=== PATIENT | female | born 1950 | race Caucasian/White ===

== ENCOUNTER 2022-08-12 12:38 | Inpatient (IN) ==
[~2022-08-12 12:38] MED LIST: IPRATROPIUM/ALBUTEROL 3 ML AMPUL.NEB NEB PRN; SCOPOLAMINE 1 PATCH PATCH TOPICAL PRN
--- OUTSIDE RECORDS SUMMARY | 2022-08-12 12:40 | External Medical Summary | Encounter Summary ---
:1950 Author Care Team Providers Name Role Phone Nicholas [facility] Primary Care Provider [phone] Jonnathan Kaur MD [employer] [phone] Reason for Visit right knee pain Assessment and Plan 1. Pain of right knee joint Mary Jane is in quite a bit of pain when sh e ambulates and has swelling of her right knee. Will proceed wtih MRI and referral to orthopedics, per her request for a cortisone injection. Recommend trial of meloxicam. Risks, benefits and side effects of medication were discussed. Do not tyshawn e additional NSAIDs with the meloxicam, she will hold the baby aspirin. Recommend ic e and/or heat. Will call with the MRI results and any additional recommendations. Denise ent in agreement with plan and all questions answered. meloxicam 7.5 mg tablet MRI, knee, w/o contrast orthopedic surgeon referral - Pt requ ests Dr. Morley. Right knee pain and swelling. MRI ordered. Requesting cortis one injection. Discussion Note 30 total time spent today by this ainsley payne for this patient, [id number] and non [id number] services combined. Patient educational handouts: No information available. Plan of Care Reminders Provider Appointments Office Visit 30 on or around Domitila Caldwell, 09/25/2022 [facility] None recorded. Referral Orthopedic Surgeon 08/01/2022 Julisa Or teo Referral Procedures None recorded. Surgeries None recorded. Imaging MRI, Knee, W/o Contrast 08/01/2022 [facility] Medications Name Start Date aspirin 81mg daily atorvastatin 40 mg tablet TAKE 1 TABLET BY MOUTH ONCE DAILY B-12 Compliance benzonatate 100 mg capsule fenofibrate 160 mg tablet Take 1 tablet by mouth once daily hydrochlorothiazide 12.5 mg capsule TAKE 1 CAPSULE BY MOUTH ONCE DAILY hydromorphone 2 mg tablet Take 1 tablet every day by oral route as needed. hydroxyzine HCl 25 mg tablet TAKE 1 TABLET BY MOUTH TWICE DAILY iron 325mg Iron (ferrous sulfate) 325 mg (65 mg iron) tablet Take 1 tablet every day by oral route. levothyroxine 88 mcg tablet Take 1 tablet every day by oral route. meloxicam 7.5 mg tablet Take 1 tablet every day by oral route with meals. metoprolol succinate ER 50 mg tablet,extended release 24 hr Take 1 tablet by mouth once daily nitroglycerin 0.4 mg sublingual tablet DISSOLVE ONE TABLET UNDER THE TONGUE EV JULIANA 5 MINUTES NEEDED FOR CHEST PAIN. DO NOT EXCEED A TOTAL OF 3 DOSES IN 15 MINUTES omeprazole 40 mg capsule,delayed release TAKE 1 CAPSULE BY MOUTH ONCE DAILY paroxetine 20 mg tablet TAKE 1 TABLET BY MOUTH ONCE DAILY Stool Softener Vitamin B12 Vitamin D3 600mg capule TID Medications Administered None recorded. Vitals Height Weight BMI Blood Pressure 5 ft 2.25 in 146.6 lbs 26.6 kg/m2 168/84 mm[Hg] Results Lab Results None recorded. 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 Colon polyps) 11/03/2005 Cholecystectomy Information not avai lable Foot/toes Surgery Procedure Information not available Notes: 2019 Left sesmoidectomy and scr ew removal. Dr. Alston Back Surgery Information not avai lable Notes: x2 Caesarean Section Information not avai lable Caesarean Section Information not avai lable 08/01/2022 MRI, Knee, W/o Contrast [facility]iology [address] [place] [id number] ([address]) Vaccine List Vaccine Type influenza, injectable, quadrivalent, pre servative free 08/05/2018 08/13/2019 07/20/20200.5 mL influenza, recombinant, quadrIvalent,inj ectable, preservative free 10.5 mL pneumococcal conjugate PCV 13 11/23/2014 pneumococcal polysaccharide PPV23 10/15/2017 Td(adult) unspecified formulation 07/04/2012 Tdap 09/22/20180.5 mL Notes: pt notes got Flu shot at Dr. Wilmar jennings office, COVID VACCINE COMPLETED Social History Tobacco Smoking Status Former Smoker (2 packs per Notes: s topped in 2002) Do you have difficulty walking N or climbing stairs? What type of diet are you REGULAR following? During the past 4 weeks, what Moderate was the hardest physical activity you could do for at least 2 minutes? Are you able to care for Y yourself? Are you currently employed? N How much tobacco do you chew? none What is your level of alcohol None consumption? Education 8 Number of sexual partners 1 Do you exercise for 20 minutes No - I usually do not do or more, 3 or more days per this much week? Seat belts used routinely Y How often do you need to have Never someone help you when you read instructions, pamphlets, or other written material from your doctor or pharmacy? In the past year, how often have Never you used prescription drugs for non-medical reasons? How many children do you have? 4 Are you blind or do you have N difficulty seeing? Do you have smoke and carbon Y monoxide detectors in your home? Partner status What was the date of your most 08/01/2022 recent tobacco screening? Do you have an advanced N directive? General stress level Medium Vaping or electronic cigarettes? N How many years have you smoked 40 tobacco? Live alone or with others? with others Guns present in home? Yes - Guns are secured Are you sexually active? N Do you have difficulty N concentrating, remembering or making decisions? Hard of hearing or deaf in one N or both ears? What is your level of caffeine Moderate consumption? Are you having difficulties No driving your car? How often in the past year have Never you used illegal substances? Marijuana / cannabis use? N Family History Relation Problem Onset Age of Age Notes Brother Neoplasm of lung (No N/A Information) Brother Hypertensive disorder (No N/A (No No fabián) Information) Brother Neoplasm of pancreas (No N/A d Information) Sister Neoplasm of uterus (No N/A alive Information) Sister Hypertensive disorder (No N/A (No No fabián) Information) Unspecified Neoplasm of lung (No N/A niece-decea sed Relation Information) Father Alcohol abuse (No N/A (No Notes) Information) Father Heart disease (No N/A (No Notes) Information) Father Hypercholesterolemia (No N/A (No Not es) Information) Father Hypertensive disorder (No N/A (No No fabián) Information) Father Cerebrovascular accident (No N/A (No Notes) Information) Mother Arthritis (No N/A (No Notes) Information) Mother Malignant tumor of colon (No N/A (No Notes) Information) Mother Cerebrovascular accident (No N/A (No Notes) Information) Mother Osteoporosis (No N/A (No Notes) Information) Functional Status No Impairment. Past Encounters 08/01/2022 Pain of Right Knee Joint Domitila Doreen Caldwell, [facility]: [address] [place] [id number], Ph. History of Present Illness Note: <div>Patient presents to the clinic with a chief complaint of right knee pain. She states [facility] for this complaint and was told she had arthritis and an effusion. She had fluid removed and an intra-articular morphine injection. She states they tested the fluid for gout and it was negative. The injection did not help with the pain or swelling. She reports this all started about a week ago and she is having trouble ambulating due to the pain. She has a history of right knee pain in the past which required cortisone injections (5 years ago or so). She states bending her knee is painful and it is difficult to get up once she is sitting down. Rest and heat have improved the pain. She was prescribed naproxen but she didn't feel like it was helpful. Of note, shewent to urgent care prior to this for bilateral ankle swelling and was diagnosed with thrombophlebitis. She reports this is now mostly resolved. Denies history of DVT or blood clots. Denies history of trauma or injury.</div><div>
</div> Review of Systems Comprehensive Adult Problem ROS Reported By: Patient Constitutional: Constitutional: no fever Musculoskeletal: Musculoskeletal: no previous injuries, no trauma, joint swelling Physical Exam Musculoskeletal and Joint Ex am Reported By: Patient Musculoskeletal System: Right Knee: no crepitus, goo d ROM, no warmth, no erythema, no deformity, swelling, tendern ess, pain on palpation. Left Knee: no crepitus, good ROM, no tenderness. Right Ankle: ROM good, no tenderness, no warm th, no erythema, no pain on palpation, swelling; Varicos e veins noted to RLE. Pedal pulses normal. Left Ankle: R OM good, no tenderness, no warmth, no erythema, no pain on palpation, swelling; Varicose veins noted to LLE. Pedal pu lses normal
--- OUTSIDE RECORDS SUMMARY | 2022-08-12 12:40 | External Medical Summary ---
:1950 Author Care Team Providers Name Role Phone MACIEL KNOX MD [employer] [phone] [facility] Primary Care Provider [phone] Allergies Code Code System Name Reaction Severity Status Onset DARVOCET-N Active 5489 RxNorm Hydrocodone Hives Active 7804 RxNorm Oxycodone Hives Active Medications Name Status Start Date Stop Date acetic acid 2 % ear solution Completed Advair HFA 115 mcg-21 mcg/actuation aerosol inhaler Completed 01/07/2018 Inhale 2 puffs twice a day by inhalation route for 30 days. alendronate 70 mg tablet Completed 020 amoxicillin 500 mg capsule Completed 01/31 Take 1 capsule every 12 hours by oral route for 10 days. amoxicillin 875 mg-potassium clavulanate 125 mg tablet Completed 01/05/2018 Take 1 tablet every 12 hours by oral route for 7 days. aspirin Active Not available 81mg daily atorvastatin 40 mg tablet Active Not av ailable azithromycin 250 mg tablet Completed 10/16 B-12 Compliance Active Not available benzonatate 100 mg capsule Active Not a vailable bupivacaine (PF) 0.5 % (5 mg/mL) injection solution Completed 12/25/2020 Take 6 mL by injection route for 1 day. bupivacaine HCl 0.5 % (5 mg/mL) injection solution Completed 12/25/2020 Take 6 mL by injection route for 1 day. calcitonin (salmon) 200 unit/actuation nasal spray Completed 03/09/2018 Take 1 spray every day by nasal route as directed for 30 days. Calcium 500 + D (D3) Completed 07/16/2019 daily Calcium Citrate + D Completed 02/23/2018 cefdinir 300 mg capsule Completed 03/25/20 TAKE 1 CAPSULE BY MOUTH TWICE DAILY ceftriaxone 1 gram solution for injection Completed 12/25/2020 Take 1 g by injection route for 1 day. cephalexin 500 mg capsule Completed 2018 diazepam 10 mg tablet Completed 02/08/2019 diclofenac 1 % topical gel Completed 07/16 diclofenac potassium 50 mg tablet Unknown Not available erythromycin 5 mg/gram (0.5 %) eye ointment Completed 02/13/2021 Estrace 0.01% (0.1 mg/gram) vaginal cream Completed 11/12/2017 Insert 2 grams by vaginal route every d ay for 14 days. Then insert 1 gram every day. estradiol 0.0375 mg/24 hr weekly transdermal patch Completed 11/12/2017 fenofibrate 160 mg tablet Active Not av ailable fluconazole 100 mg tablet Completed 2017 fluconazole 150 mg tablet Completed 2021 TAKE 1 TABLET BY MOUTH TODAY AND THEN REPEAT IN 72 HOURS fluconazole 200 mg tablet Completed 2021 TAKE 1 TABLET BY MOUTH ONCE DAILY FOR 7 DAYS fluticasone propionate 50 mcg/actuation nasal Completed 01/05/2018 spray,suspension gabapentin 300 mg capsule Completed 2021 hydrochlorothiazide 12.5 mg capsule Active Not available hydrocortisone-acetic acid 1 %-2 % ear drops Completed 01/19/2019 INSTILL 2 DROPS INTO AFFECTED EAR(S) BY OTIC ROUTE 4 TIMES PER DAY x 5 -7 days hydromorphone 2 mg tablet Active Not av ailable hydroxyzine HCl 25 mg tablet Active Not available TAKE 1 TABLET BY MOUTH TWICE DAILY indomethacin 25 mg capsule Unknown Not a vailable ipratropium 0.5 mg-albuterol 3 mg (2.5 mg base)/3 mL n ebulization soln Completed 01/19/2019 Inhale 3 mL 4 times a day by nebulization route for 1 day. iron Active Not available 325mg Iron (ferrous sulfate) 325 mg (65 mg iron) tablet Active Not available Take 1 tablet every day by oral route. Kenalog 40 mg/mL suspension for injection Completed 12/25/2020 Take 1 mL by injection route for 1 day. ketoconazole 2 % topical cream Completed 0 01/19/2019 APPLY TO THE RIGHT EAR CANAL TWICE DAILY WITH QTIP BY TOPIC AL ROUTE x 14 days levothyroxine 88 mcg tablet Active Not available Take 1 tablet every day by oral route. lidocaine (PF) 10 mg/mL (1 %) injection solution Completed 02/13/2021 Take 2.1 mL by injection route for 1 day. lorazepam 0.5 mg tablet Completed 01/10/20 18 meclizine 25 mg tablet Unknown Not avail able meloxicam 7.5 mg tablet Active Not avai lable methocarbamol 750 mg tablet Unknown Not available metoprolol succinate ER 50 mg tablet,extended release 24 Active Not available hr metoprolol tartrate 50 mg tablet Completed 07/16/2019 mometasone 0.1 % topical cream Completed 0 07/16/2019 montelukast 10 mg tablet Completed 018 naproxen sodium 550 mg tablet Completed TAKE 1 TABLET BY MOUTH TWICE DAILY jdkltbuy-toxkgbqap-madgekmvh 3.5 mg-10,000 unit/mL-1 % Completed 08/13/2018 ear drops,susp nitrofurantoin monohydrate/macrocrystals 100 mg capsule Complete d 12/25/2020 nitroglycerin 0.4 mg sublingual tablet Active Not available DISSOLVE ONE TABLET UNDER THE TONGUE EV JULIANA 5 MINUTES NEEDED FOR CHEST PAIN. DO NOT EXCEED A TOTAL OF 3 DOSES IN 15 MINUTES nystatin 100,000 unit/gram topical cream Completed 03/25/2022 APPLY CREAM TOPICALLY TO AFFECTED AREA TWICE DAILY NEEDED nystatin 100,000 unit/mL oral suspension Completed 03/25/2022 ofloxacin 0.3 % eye drops Unknown Not av ailable omeprazole 40 mg capsule,delayed release Active Not available ondansetron 4 mg disintegrating tablet Completed 02/13/2021 oxybutynin chloride ER 5 mg tablet,extended release 24 Completed 09/06/2021 hr paroxetine 10 mg tablet Completed 02/14/20 21 paroxetine 20 mg tablet Active Not avai lable prednisone 10 mg tablet Completed 01/06/20 18 Take 10 mg by oral route for 6 days. x 1 day each 60 mg then 50 mg then 40 mg then 30 mg then 20 mg then 10 mg prednisone 20 mg tablet Unknown Not avai lable promethazine-DM 6.25 mg-15 mg/5 mL oral syrup Completed 11/07/2021 Pyridium 200 mg tablet Completed Take 1 tablet 3 times a day by oral route around the clock for 5 days. simethicone 125 mg capsule Completed 02/13 Take 1 capsule 4 times a day by oral route. Stool Softener Active Not available sulfamethoxazole 800 mg-trimethoprim 160 mg tablet Completed 01/04/2022 TAKE 1 TABLET BY MOUTH EVERY 12 HOURS FOR 7 DAYS Suprep Bowel Prep Kit 17.5 gram-3.13 gram-1.6 gram oral Complete d 11/12/2017 solution Symbicort 80 mcg-4.5 mcg/actuation HFA aerosol inhaler Completed 01/19/2019 Inhale 2 puffs twice a day by inhalation route for 30 days. tramadol 50 mg tablet Completed 02/13/2021 Ventolin HFA 90 mcg/actuation aerosol inhaler Completed 01/19/2019 Vitamin B12 Active Not available Vitamin D3 Active Not available 600mg capule TID Problems Name Status Onset Date Source Myocardial [...] lable Caesarean Section Information not avai lable 04/11/2017 US, Renal [facility] er Radiology [address] [facility] [place] [id number] ([address]) 11/12/2017 XR, Shoulder, 2 or More View [facility] Radio logy [address] [place] [id number] ([address]) 12/29/2017 XR, Chest, [address] [facility] er Radiology [address] [facility] [place] [id number] ([address]) 02/23/2018 MAMMO, Screening, Digital, Bilateral [facility] [address] [place] [id number] (Work [address]) 02/23/[address] [facility] Radiology [address] [place] [facility] [id number] (Work [address]) 02/23/2018 LDCT, Chest, for Lung Cancer Screening [facility] Radiology [address] [place] [id number] (Work [address]) 02/23/2018 US, Thyroid [facility] Radiology [address] [place] [id number] (Work Place) 02/23/2018 Mammogram, Screening Information not alexandrea ilable 02/25/2018 US, Abdomen, Complete [facility] [address] [place] [facility] [place] [phone] (Work [address]) 02/26/2018 US, Pelvis [facility] Radiology [address] [place] [facility] [place] [id number] (Work Place) 02/28/2018 CT, Abdomen, W/ Contrast [facility] Radiology [address] [place] [facility] [place] [id number] (Work [address]) 03/02/2018 CT, Abdomen, W/wo Contrast [facility] [address] [place] [facility] [place] [id number] (Work Place) 08/04/2018 US, Abdomen, Complete [facility] nter Radiology [address] [place] [facility] [place] [id number] (Work Place) 10/18/2018 US, Abdomen + Pelvis [facility] ter Radiology [address] [place] [facility] [place] [phone] (Work Place) 01/19/2019 XR, Hand [facility] Radiology [address] [place] [id number] (Work Place) 02/10/2019 XR, Wrist [facility] Radiology [address] [place] [facility] [place] [id number] (Work [address]) 02/26/[address] [facility] er [address] [place] [phone] (Work Place) 02/26/2019 Stress Echocardiogram [facility] nter Radiology [address] [place] [facility] [place] [id number] (Work Place) 02/26/2019 US, Pelvis, Complete [facility] ter Radiology [address] [place] [facility] [place] [id number] (Work Place) 03/04/[address] [facility] er [address] [place] [phone] (Work Place) 03/04/2019 Stress Echocardiogram [facility] nter Radiology [address] [place] [facility] [place] [phone] (Work Place) 03/04/2019 US, Pelvis, Complete [facility] ter Radiology [address] [place] [facility] [place] [phone] (Work Place) 03/19/2019 US, Renal [facility] er Radiology [address] [place] [facility] [place] [phone] (Work Place) 03/22/2019 CT, Abdomen + Pelvis, W/wo Contrast [facility] Radiology [address] [place] [facility] [place] [phone] (Work Place) 03/23/2019 CT, Angiogram, Coronary Arteries, W/wo [facility] Radiology Contrast [address] [place] [facility] [place] [phone] (Work Place) 03/23/2019 US, Echocardiogram, Transthoracic, [facility] Radiology Complete, W/ Color Flow [address] [place] [facility] [place] [id number] (Work Place) 06/22/2019 MAMMO, Screening, Digital, Bilateral [facility] [address] [place] [phone] (Work Place) 02/02/[address] [facility] er Radiology [address] [place] [facility] [place] [phone] (Work Place) 07/02/2020 Dexa [facility] Radiology [address] [place] [phone] (Work Place) 07/02/2020 MAMMO, Screening, Digital, Bilateral [facility] [address] [place] [id number] (Work Place) 07/24/2021 DEXA, Axial Skeleton + Vertebral [facility] Radiology Fracture Assessment [address] [place] [facility] [place] [phone] (Work Place) 07/25/2021 DEXA, Axial Skeleton [facility] ter Radiology [address] [place] [facility] [place] [phone] (Work Place) 09/06/2021 US, Duplex, Arterial, Lower Extremity, S [facility] Radiology Complete [address] [place] [address] (Work Place) 08/01/2022 MRI, Knee, W/o Contrast [facility] Radiology [address] [place] [address] (Work Place) Results Lab Results Date Name Specimen Result Interpretation Description Value Range Status Address 03/26/2022 CBC W/ BLOOD Low Wbc. 4.9 10^3/uL 5.0-11.0 [facility] (Lab[facility] [address] [facility] BLOOD Low Rbc 3.72 4.00-5.40 Final itman 10^6/uL 10^6/uL Medical Center (Lab): [address] [facility] BLOOD Low Hgb 11.8 g/dL 12.0-15.0 Final it man g/dL Medical Center (Lab): [address] [facility] BLOOD Hct 35.9 % 35.0-49.0 Final [facility] % Medical Center (Lab): [address] [facility] BLOOD Mcv 97 fL 80-100 fL Final [facility] (Lab): [address] [facility] BLOOD Mch 32 pg 26-32 pg Final [facility] (Lab): [address] [facility] BLOOD Mchc 33 g/dL 32-36 Final itman g/dL [facility] Center (Lab): [address] [facility] BLOOD Rdw 12.4 % 11.6-14.8 Final [facility] Medical Center (Lab): [address] [facility] BLOOD Plt 265 10^3/uL 150-450 Final [facility] 10^3/uL Medical Center (Lab): [address] [facility] [place] BLOOD Mpv 11.2 fL 6.5-12.0 Final [facility] fL Medical Center (Lab): [address] [facility] [place] BLOOD Ipf % 1.40-5.80 Final [facility] Center (Lab): [address] [facility] [place] BLOOD Ipf # Final [facility] Center (Lab): [address] [facility] [place] BLOOD Auto auto Final [facility] Diff differentia Medic al l Center (Lab): [address] [facility] [place] BLOOD Neut % 59 % 46-66 % Final [facility] (Lab): [address] [facility] [place] BLOOD Ig % 0.20 % 0.11-0.[address] [facility] Center (Lab): [address] [facility] [place] BLOOD Lymphs % 29 % 24-44 % Final [facility] n [facility] Center (Lab[facility] [address] [facility] [place] BLOOD Ware % 8 % 0-11 % Final [facility] (Lab): [address] [facility] [place] BLOOD Eos % 3 % 0-4 % Final [facility] (Lab): [address] [facility] [place] BLOOD Baso % 1 % 0-2 % Final [facility] (Lab): [address] [facility] [place] BLOOD Neutroph 2.9 10^3/uL 1.8-7.8 Final [facility] ils # 10^3/uL Medical Center (Lab): [address] [facility] [place] BLOOD Ig # 0.010 0.005-0.0 Final [facility] 10^3/uL 22 Medical 10^3/uL Center (Lab): [address] [facility] [place] BLOOD Lymphs # 1.4 10^3/uL 1.0-4.8 Final [facility] 10^3/uL Medical Center (Lab): [address] [facility] [place] BLOOD Monos # 0.4 10^3/uL 0.0-0.8 Final [facility] 10^3/uL Medical Center (Lab): [address] [facility] BLOOD Eos # 0.1 10^3/uL 0.0-0.5 Final [facility] 10^3/uL Medical Center (Lab): [address] [place] [address] BLOOD Baso # 0.0 10^3/uL 0.0-0.2 Final [facility] 10^3/uL Medical Center (Lab): [address] [place] [address] 03/26/2022 CMP, NONFASTING Sodium 137 mmol/L 135-145 Fin nadine Co[facility]man Serum or mmol/L Medical Plasma Center (Lab): [address] [place] [address] NONFASTING Potassiu 4.0 mmol/L 3.5-5.1 Final [facility] m mmol/L Medical Center (Lab): [address] [place] [address] NONFASTING Chloride 103 mmol/L 98-107 Final [facility] mmol/L Medical Center (Lab): [address] [place] [address] NONFASTING Total 26 mmol/L 21-32 Final [facility] CO2 mmol/L Medical Center (Lab): [address] [place] [address] NONFASTING Anion 12.0 mmol/L 7.0-16.0 Final [facility] Gap mmol/L Medical Center (Lab): [address] [place] [address] NONFASTING Glucose 97 mg/dL 65-99 Final Gr [facility]man mg/dL Medical Center (Lab): [address] [place] [address] NONFASTING Calcium 9.30 mg/dL 8.90-10.3 Simran l [facility] 0 mg/dL Medical Center (Lab): [address] [place] [address] NONFASTING Urea 20 mg/dL 8-26 Final [facility] (BUN) mg/dL Medical Center (Lab): [address] [place] [address] NONFASTING Low Creatini 0.55 mg/dL 0.60-1.30 Fin nadine [facility] ne mg/dL Medical Center (Lab): [address] [place] [address] NONFASTING High BUN/crea 36.4 ratio 12.0-20.0 Fin nadine Coates[facility]man t Ratio ratio Medical Center (Lab): [address] [place] [address] NONFASTING Alt 22 IU/L 14-54 Final [facility] an IU/L Medical Center (Lab): [address] [place], [place] [address]cow NONFASTING Ast 23 IU/L 15-37 Final [facility] an IU/L Medical Center (Lab): [address] [place] [address] NONFASTING Low Alp 33 IU/L 38-126 Final [facility] an IU/L Medical Center (Lab): [address] [place] [address] NONFASTING Bilirubi 0.50 mg/dL 0.10-1.00 Fin al [facility] n, Total mg/dL Medical Center (Lab): [address] [place] [address] NONFASTING Protein, 6.9 g/dL 6.4-8.2 Final [facility] Total g/dL Medical Center (Lab): [address] [place] [address] NONFASTING Albumin 3.8 g/dL 3.5-5.0 Final [facility] g/dL Medical Center (Lab): [address] [place] [address] NONFASTING Globulin 3.1 g/dL 1.4-4.8 Final [facility] g/dL Medical Center (Lab): [address] [place] [address] NONFASTING A/g 1.2 ratio 1.1-1.9 Final Gr [facility] Ratio ratio Medical Center (Lab): [address] [place] [address] NONFASTING Egfr >60 Final [facility] n mL/min/1.73 Medic al m2 Center (Lab): [address] [place] [address] NONFASTING Egfr Final [facility] n Header [facility] Center (Lab): [address] [place] [address] 03/26/2022 TSH, BLOOD Tsh 1.42 uIU/mL 0.45-5.33 Final [facility] Serum or uIU/mL [facility] Plasma Center (Lab): [address] [place] [address] 03/26/2022 Lipid FASTING Cholest 100 mg/dL <=200 Final [facility] Panel, mg/dL [facility] Blood Center (Lab): [address] [place] [address] FASTING Trigly 58 mg/dL 30-150 Final [facility] n mg/dL Medical Center (Lab): [address] [place] [address] FASTING HDL-dire 45 mg/dL 29-[address] mg/dL Medical Center (Lab): [address] [place] [address] FASTING LDL-dire 46 mg/dL 0-[address] mg/dL Medical Center (Lab): [address] [facility] FASTING Chol/hdl 2 ratio Final [facility] Center (Lab): [address] [facility] FASTING LDL/HDL 1 ratio Final [facility] (Lab): [address] [facility] FASTING Lipid Final [facility] (Lab): [address] [facility] 11/07/2021 Culture, URINE ABNORMAL Isolate escherichia Fi nal [facility] Urine 1 coli^50,000 Medic al -100,000 Center cfu/mL (Lab): [address] [facility] 11/07/2021 Antibioti URINE Suscepti Ampicill <=2 ug/mL Fi nal [facility] in [facility] Sensitivi Center ty, (Lab): [address] [facility] URINE Suscepti amox/K <=8/4 ug/mL Final [facility] Center (Lab): [address] [facility] URINE Suscepti Ceftriax <=1 ug/mL Final [facility] Center (Lab): [address] [facility] URINE Suscepti Cefoxiti <=4 ug/mL Final [facility] Center (Lab): [address] [facility] URINE Suscepti Cefazoli <=2 ug/mL Final [facility] Center (Lab): [address] [facility] URINE Suscepti Cefuroxi <=4 ug/mL Final [facility] Center (Lab): [address] [facility] URINE Suscepti Ertapene <=0.5 ug/mL Final [facility] Center (Lab): [address] [facility] URINE Suscepti Nitrofur <=32 ug/mL [facility]): [address] [facility] URINE Suscepti Gentamic <=1 ug/mL Final [facility] (Lab): [address] [facility] URINE Suscepti Imipenem <=1 ug/mL Final [facility] Center (Lab): [address] [facility] URINE Suscepti Levoflox <=1 ug/mL Final [facility] Center (Lab): [address] [facility] URINE Suscepti Pip/tazo <=8 ug/mL Final [facility] ble [facility] Center (Lab): [address] [facility] URINE Suscepti Trimeth/ <=0.5/9.5 Final [facility] sulfa ug/mL Medical Center (Lab): [address] [facility] URINE Resistan Tetracyc >8 ug/mL Final [facility] (Lab): [address] [facility] URINE Suscepti Tobramyc <=2 ug/mL Final [facility] ble in Medical Center (Lab): [address] [facility] 09/06/2021 Uric BLOOD Uric 3.6 mg/dL 3.0-6.0 Final [facility] Acid, Acid mg/dL [facility] Serum or Center Plasma (Lab): [address] [facility] 07/31/2021 CBC W/ BLOOD Wbc. 5.6 10^3/uL 5.0-11.0 Final [facility] Diff 10^3/uL Medical Center (Lab): [address] [facility] BLOOD Rbc 4.08 4.00-5.40 Final [facility] 10^6/uL 10^6/uL Medical Center (Lab): [address] [facility] BLOOD Hgb 12.6 g/dL 12.0-15.0 Final [facility] g/dL Medical Center (Lab): [address] [facility] BLOOD Hct 39.8 % 35.0-49.0 Final [facility] % [facility] Center (Lab): [address] [facility] BLOOD Mcv 98 fL 80-[address] [facility] Center (Lab): [address] [facility] BLOOD Mch 31 pg 26-[address] [facility] Center (Lab): [address] [facility] BLOOD Mchc 32 g/dL 32-36 Final [place] g/dL [facility] Center (Lab): [address] [facility] BLOOD Rdw 13.0 % 11.6-14.8 Final [facility] % [facility] Center (Lab): [address] [facility] BLOOD Plt 285 10^3/uL 150-450 Final [facility] 10^3/uL Medical Center (Lab): [address] [facility] BLOOD Mpv 10.9 fL 6.5-12.0 Final [facility] Medical Center (Lab): [address] [facility] BLOOD Ipf % 1.40-5.80 Final [facility] Medical Center (Lab): [address] [facility] [place] BLOOD Ipf # Final [facility] (Lab): [address] [facility] [place] BLOOD Auto auto Final [facility] Diff differentia Medic al l Center (Lab): [address] [facility] [place] BLOOD Neut % 60 % 46-66 % Final [facility] Center (Lab): [address] [facility] [place] BLOOD Ig % 0.20 % 0.11-0.[address] [facility] Center (Lab): [address] [facility] [place] BLOOD Lymphs % 29 % 24-44 % Final [facility] n [facility] Center (Lab): [address] [facility] [place] BLOOD Ware % 7 % 0-11 % Final [facility] (Lab): [address] [facility] [place] BLOOD Eos % 3 % 0-4 % Final [facility] (Lab): [address] [facility] [place] BLOOD Baso % 1 % 0-2 % Final [facility] (Lab): [address] [facility] [place] BLOOD Neutroph 3.3 10^3/uL 1.8-7.8 Final [facility] ils # 10^3/uL Medical Center (Lab): [address] [facility] [place] BLOOD Ig # 0.010 0.005-0.0 Final [facility] 10^3/uL 22 Medical 10^3/uL Center (Lab): [address] [facility] [place] BLOOD Lymphs # 1.6 10^3/uL 1.0-4.8 Final [facility] 10^3/uL Medical Center (Lab): [address] [facility] [place] BLOOD Monos # 0.4 10^3/uL 0.0-0.8 Final [facility] 10^3/uL Medical Center (Lab): [address] [facility] [place] BLOOD Eos # 0.1 10^3/uL 0.0-0.5 Final [facility] 10^3/uL Medical Center (Lab): [address] [facility] [place] BLOOD Baso # 0.0 10^3/uL 0.0-0.2 Final [facility] 10^3/uL Medical Center (Lab): [address] [facility] 01/15/2021 CBC W/ BLOOD Low Wbc. 4.5 5.0-11.0 Final [facility] Diff 1000/mm3 1000/mm3 [facility] (Lab[facility] [address] [facility] BLOOD Low Rbc 3.87 4.00-5.40 Final [facility] flaquita/mm3 flaquita/mm3 [facility] (Lab): [address] [facility] BLOOD Low Hgb 11.9 g/dL 12.0-15.0 Final [facility] man g/dL Medical Center (Lab): [address] [facility] BLOOD Hct 37.3 % 35.0-49.0 Final [place] [facility] (Lab): [address] [facility] BLOOD Mcv 96 fL 80-[address] [facility] Center (Lab): [address] [facility] BLOOD Mch 31 pg 26-32 pg Final [facility] Center (Lab): [address] [facility] BLOOD Mchc 32 g/dL 32-36 Final [facility] g/dL Medical Center (Lab): [address] [facility] BLOOD Rdw 12.7 % 11.6-14.8 Final [place] [facility] (Lab): [address] [facility] BLOOD Plt 271 150-450 Final [facility] 1000/mm3 1000/mm3 [facility] (Lab): [address] [facility] BLOOD Mpv 11.2 fL 6.5-12.0 Final [facility] fL Medical Center (Lab): [address] [facility] BLOOD Ipf % 1.40-5.80 Final [place] [facility] (Lab): [address] [facility] BLOOD Ipf # Final [facility] Center (Lab): [address] [facility] BLOOD Auto auto Final [facility] Diff differentia Medic al Center (Lab): [address] [facility] BLOOD Neut % 59 % 46-66 % Final [facility] Medical Center (Lab): [address] [facility] BLOOD Ig % 0.20 % 0.11-0.32 Final [place] % Medical Center (Lab): [address] [facility] BLOOD Lymphs % 29 % 24-44 % Final [facility] (Lab): [address] [facility] BLOOD Ware % 8 % 0-11 % Final [facility] Center (Lab): [address] [facility] [place] BLOOD Eos % 3 % 0-4 % Final [facility] Center (Lab): [address] [facility] [place] BLOOD Baso % 1 % 0-2 % Final [facility] Center (Lab): [address] [facility] [place] BLOOD Neutroph 2.7 1.8-7.8 Final [facility]rit[facility] n ils # 1000/mm3 1000/mm3 Medica l Center (Lab): [address] [facility] BLOOD Ig # 0.010 0.005-0.0 Final [facility] 1000/uL 22 Medical 1000/uL Center (Lab): [address] [facility] BLOOD Lymphs # 1.3 1.0-4.8 Final [facility]rit[facility] n 1000/mm3 1000/mm3 Medica l Center (Lab): [address] [facility] BLOOD Monos # 0.4 0.0-0.8 Final [place] 1000/mm3 1000/mm3 Medica l Center (Lab): [address] [facility] BLOOD Eos # 0.1 0.0-0.5 Final [place] 1000/mm3 1000/mm3 Medica l Center (Lab): [address] [facility] BLOOD Baso # 0.0 0.0-0.2 Final [place] 1000/mm3 1000/mm3 Medica l Center (Lab): [address] [facility] 01/15/2021 T4, Free, BLOOD Free T4 1.51 NG/dL 0.77-1.61 F inal [place] Serum NG/dL Medical Center (Lab): [address] [facility] 01/15/2021 TSH, BLOOD Tsh 1.54 uIU/mL 0.45-5.33 Final [facility] Serum or uIU/mL Medical Plasma Center (Lab): [address] [place] [address] 01/15/2021 CMP, NONFASTING Sodium 137 mmol/L 135-145 Fin al [facility] Serum or mmol/L Medical Plasma Center (Lab): [address] [place] [address] NONFASTING Potassiu 3.6 mmol/L 3.5-5.1 Final [facility] m mmol/L Medical Center (Lab): [address] [facility] NONFASTING Chloride 102 mmol/L 98-107 Final [place] mmol/L Medical Center (Lab): [facility] NONFASTING Total 27 mmol/L 21-32 Final [place] CO2 mmol/L Medical Center (Lab): [facility] NONFASTING Anion 11.6 mmol/L 7.0-16.0 Final [place] mmol/L Medical Center (Lab): [address] [facility] NONFASTING Glucose 96 mg/dL 65-99 Final Gr it[place] mg/dL Medical Center (Lab): [address] [place] [address] NONFASTING Calcium 9.30 mg/dL 8.90-10.3 Simran l [facility] 0 mg/dL Medical Center (Lab): [address] [place] [address] NONFASTING Urea 15 mg/dL 8-26 Final Grit man (BUN) mg/dL Medical Center (Lab): [facility] NONFASTING Creatini 0.67 mg/dL 0.60-1.30 Fin ma [place] ne mg/dL Medical Center (Lab): [address] [place] [address] NONFASTING High BUN/crea 22.4 ratio 12.0-20.0 Fin al [place] t Ratio ratio Medical Center (Lab): [facility] NONFASTING Alt 21 U/L 14-54 U/L Final [facility] tman Medical Center (Lab): [address] [facility] NONFASTING Ast 26 U/L 15-37 U/L Final i tman Medical Center (Lab): [address] [facility] NONFASTING Low Alp 33 U/L 38-126 Final [facility] n U/L Medical Center (Lab): [facility] NONFASTING Bilirubi 0.50 mg/dL 0.10-1.00 Fin al [place] n, Total mg/dL Medical Center (Lab): [facility] NONFASTING Protein, 7.0 g/dL 6.4-8.2 Final [facility] Total g/dL Medical Center (Lab): [address] [place], [place] [id number] NONFASTING Albumin 3.9 g/dL 3.5-5.0 Final G rit[facility] g/dL Medical Center (Lab): [address] [facility] NONFASTING Globulin 3.1 g/dL 1.4-4.8 Final [place] g/dL Medical Center (Lab): [address] [facility] NONFASTING A/g 1.3 ratio 1.1-1.9 Final Gr it[facility] Ratio ratio Medical Center (Lab): [address] [facility] NONFASTING Egfr >[address] [facility] n mL/min/1.73 Medic al m2 Center (Lab): [address] [facility] NONFASTING Egfr Final [facility] n [facility] Center (Lab): [address] [facility] 01/15/2021 Lipid FASTING Cholest 109 mg/dL <=200 Final [facility] Panel, mg/dL Medical Blood Center (Lab): [address] [facility] FASTING Trigly 74 mg/dL 30-[address] [facility] n mg/dL Medical Center (Lab): [address] [facility] FASTING HDL-dire 44 mg/dL 29-[address] [facility] ct mg/dL Medical Center (Lab): [address] [facility] FASTING LDL-calc 50 mg/dL Final [facility] Center (Lab): [address] [facility] FASTING Chol/hdl [address] [facility] an Medical Center (Lab): [address] [facility] FASTING LDL/HDL 1 ratio Final itky n Ratio Medical Center (Lab): [address] [facility] FASTING Lipid Final [facility] Center (Lab): [address] [facility] 05/03/2020 Urinalysi URINE Color straw Final i tman s [facility] Complete, Center Reflex (Lab): [address] [facility] URINE Appearan clear Final [facility] ce Medical Center (Lab): [address] [facility] URINE Specific 1.005 1.001-1.0 Final it man [place] [facility] Center (Lab): [address] [facility] URINE Ph 6.0 pH 5.0-7.5 Final [facility] units pH units Medical Center (Lab): [address] [facility] URINE Leukocyt negative negative Final [place] es /uL /uL Medical Center (Lab): [address] [facility] URINE Nitrite negative negative Final [facility] man Medical Center (Lab): [address] [facility] URINE Protein negative negative Final G[facility] man mg/dL mg/dL Medical Center (Lab): [address] [facility] URINE Glucose normal normal Final [place] mg/dL mg/dL Medical Center (Lab): [address] [facility] URINE Ketone negative negative Final Gritm an mg/dL mg/dL Medical Center (Lab): [address] [facility] URINE Urobilin normal normal Final [facility] ogen mg/dL mg/dL Medical Center (Lab): [address] [facility] URINE Bilirubi negative negative Final Gri t[place] n mg/dL mg/dL Medical Center (Lab): [address] [facility] URINE ABNORMAL Blood 10 juliana/uL negative Final Gri t[facility] juliana/uL Medical Center (Lab): [address] [facility] URINE Urmicroh microscopi Final [facility] [place] [facility] (Lab): [address] [facility] URINE White 0-2 /high Final [facility] Blood power field Medic al Cells Center (Lab): [address] [facility] URINE Red 0-2 /high Final [facility] Blood power field Medic al Cells Center (Lab): [address] [facility] URINE Sq 0-2 /high Final [facility] Epithelia power field Me dical l Center (Lab): [address] [facility] URINE Bacteria none seen none seen Final G ritman /high power /high Medic al field power Center field (Lab): [address] [facility] URINE Culture no no Final [facility] Indicated Medical Center (Lab): [address] [facility] URINE Transiti 0-2 /high Final Grit man onal Epi power field Med ical Center (Lab): [address] [facility] URINE Renal Final [facility] Tubular Medical Epi Center (Lab): [address] [facility] URINE Mucus Final [facility] Center (Lab): [address] [facility] URINE Calcium none seen Final Gritm an Ox /high Medical Crystal power Center field (Lab): [address] [facility] URINE Uric none seen Final [place] Acid /high Medical Crystals power Center field (Lab): [address] [facility] [place] URINE Triple none seen Final [facility] n Phos /high Medical Crystals power Center field (Lab): [address] [facility] URINE Amorphou none seen Final [facility] man s Medical Center (Lab): [address] [facility] [place] URINE Hyaline none seen Final Gritm an Casts /low Medical power Center field (Lab): [address] [facility] URINE Granular Final [facility] Cast [facility] Center (Lab): [address] [facility] URINE Red Cell none seen Final Grit man Cast /low Medical power Center field (Lab): [address] [facility] URINE White Final [place] Cell Cast [facility] Center (Lab): [address] [facility] URINE Waxy Final [facility] Cast [facility] Center (Lab): [address] [facility] URINE Fatty Final [place] [facility] Center (Lab): [address] [facility] URINE Hemoglob Final [place] in Cast Medical Center (Lab): [address] [facility] URINE Budding none seen Final Gritm an Yeast /high Medical power Center field (Lab): [address] [facility] URINE Pseudohy Final [facility] phae Medical Yeast Center (Lab): [address] [facility] URINE Trichomo absent Final [place] laurie /high Medical power Center field (Lab): [address] [facility] 04/28/2019 CMP, NONFASTING Sodium 136 mmol/L 135-145 Fin [facility] Serum or mmol/L Medical Plasma Center (Lab): [address] [facility] NONFASTING Potassiu 3.5 mmol/L 3.5-5.1 Final [facility] m mmol/L Medical Center (Lab): [address] [facility] NONFASTING Chloride 103 mmol/L 98-107 Final [facility] mmol/L Medical Center (Lab): [address] [facility] NONFASTING Total 27 mmol/L 21-32 Final i tman CO2 mmol/L Medical Center (Lab): [address] [facility] NONFASTING Anion 9.5 mmol/L 7.0-16.0 Final [place] mmol/L Medical Center (Lab): [address] [facility] NONFASTING High Glucose 118 mg/dL 65-99 Final G rit[facility] mg/dL Medical Center (Lab): [address] [facility] NONFASTING Calcium 9.60 mg/dL 8.90-10.3 Simran l [facility] 0 mg/dL Medical Center (Lab): [address] [facility] NONFASTING Urea 22 mg/dL 8-26 Final Grit man (BUN) mg/dL Medical Center (Lab): [facility] S [facility] NONFASTING Creatini 0.78 mg/dL 0.60-1.30 Fin al [place] ne mg/dL Medical Center (Lab): [address] [place] [address] NONFASTING High BUN/crea 28.2 ratio 12.0-20.0 Fin al [place] t Ratio ratio Medical Center (Lab): [facility] S [facility] NONFASTING Alt 29 U/L 14-54 U/L Final [facility] Center (Lab): [address] [facility] NONFASTING Ast 29 U/L 15-37 U/L Final [facility] Center (Lab): [facility] S [facility] NONFASTING Low Alp 30 U/L 38-126 Final [facility] n U/L Medical Center (Lab): [facility] S [facility] NONFASTING Bilirubi 0.20 mg/dL 0.10-1.00 [facility]dL [facility] (Lab): [facility] S [facility] NONFASTING Protein, 7.6 g/dL 6.4-8.2 Final [facility] Total g/dL Medical Center (Lab): [address] [facility] NONFASTING Albumin 4.1 g/dL 3.5-5.0 Final G rit[facility] g/dL Medical Center (Lab): [facility] S [facility] NONFASTING Globulin 3.5 g/dL 1.4-4.8 Final [place] g/dL Medical Center (Lab): [facility] S [facility] NONFASTING A/g 1.2 ratio 1.1-1.9 Final Gr it[place] Ratio ratio Medical Center (Lab): [facility] S [facility] NONFASTING Egfr >60 Final [facility] n mL/min/1.73 Medic al m2 Center (Lab): [address] [facility] NONFASTING Egfr Final [facility] n Header Medical Center (Lab): [address] [facility] 03/15/2019 Fecal FECES ABNORMAL Ifob positive negative Final [facility] Occult [facility] Blood, Center Immunoass (Lab): 700 ay, Stool S [facility] 03/04/2019 Electroca No Gri t[place] rdiogram observati Medic al on Center: 60 6 recorded. E [facility] 03/03/2019 Fecal FECES ABNORMAL Ifob positive negative Final [facility] Occult [facility] Blood, [place] Immunoass (Lab): 700 ay, Stool S [facility] 03/02/2019 Fecal FECES ABNORMAL Ifob positive negative Final [facility] Occult [facility] Blood, [place] Immunoass (Lab): 700 ay, Stool S [facility] 02/26/2019 CBC W/ BLOOD Wbc. 5.1 5.0-11.0 Final Grit man Manual 1000/mm3 1000/mm3 Medica l Diff Center (Lab): [address] [facility] BLOOD Low Rbc 3.74 4.00-5.40 Final [facility] flaquita/mm3 flaquita/mm3 Medica l Center (Lab): [address] [facility] BLOOD Hgb 12.0 g/dL 12.0-15.0 Final [facility] man g/dL Medical Center (Lab): [address] [facility] BLOOD Hct 35.2 % 35.0-49.0 Final [place] [facility] Center (Lab): [address] [facility] BLOOD Mcv 94 fL 80-[address] [facility] Center (Lab): [address] [facility] BLOOD Mch 32 pg 26-[address] [facility] Center (Lab): [address] [facility] BLOOD Mchc 34 g/dL 32-36 Final [place] g/dL Medical Center (Lab): [address] [facility] BLOOD Rdw 13.4 % 11.6-14.8 Final [facility] % [facility] Center (Lab): [address] [facility] BLOOD Plt 227 150-450 Final [place] 1000/mm3 1000/mm3 Medica l Center (Lab): [address] [facility] BLOOD Mpv 9.2 fL 6.5-12.0 Final [place] fL Medical Center (Lab): [address] [facility] BLOOD Auto auto Final [place] Diff differentia Medic al l Center (Lab): [address] [facility] BLOOD Neut % 61 % 46-66 % Final [facility] Center (Lab): [address] [facility] BLOOD Lymphs % 27 % 24-44 % Final [facility] n Medical Center (Lab): [address] [facility] [place] BLOOD Ware % 9 % 0-11 % Final [facility] (Lab): [address] [facility] BLOOD Eos % 2 % 0-4 % Final [facility] (Lab): [address] [facility] BLOOD Baso % 1 % 0-2 % Final [facility] (Lab): [address] [facility] BLOOD Neutroph 3.1 1.8-7.8 Final [place]rit[place] n ils # 1000/mm3 1000/mm3 Medica l Center (Lab): [address] [facility] BLOOD Lymphs # 1.4 1.0-4.8 Final [facility]rit[facility] n 1000/mm3 1000/mm3 Medica l Center (Lab): [address] [facility] BLOOD Monos # 0.4 0.0-0.8 Final [place] 1000/mm3 1000/mm3 Medica l Center (Lab): [address] [facility] BLOOD Eos # 0.1 0.0-0.5 Final [place] 1000/mm3 1000/mm3 Medica l Center (Lab): [address] [facility] BLOOD Baso # 0.0 0.0-0.2 Final [place] 1000/mm3 1000/mm3 Medica l Center (Lab): [address] [facility] 02/26/2019 Amylase, BLOOD High Amylase 112 U/L 28-100 Final [facility] Serum or U/L Medical Plasma Center (Lab): [address] [facility] 02/26/2019 Lipase, BLOOD Lipase 37 U/L 21-51 U/L Final [facility] Serum or Medical Plasma Center (Lab): [address] [facility] 02/26/2019 TSH, BLOOD Tsh 2.03 uIU/mL 0.45-5.33 Final [facility] or uIU/mL Medical Plasma Center (Lab): [address] [place] [address] 02/26/2019 T4, Free, BLOOD Free T4 1.26 NG/dL 0.77-1.61 F inal [facility] Serum NG/dL Medical Center (Lab): [address] [place] [address] 02/26/2019 Lipid FASTING Cholest 117 mg/dL <=200 Final itman Panel, mg/dL Medical Blood Center (Lab): [address] [place] [address] FASTING Trigly 57 mg/dL 30-150 Final itma n mg/dL Medical Center (Lab): [address] [place] [address] FASTING HDL-dire 54 mg/dL 29-[address] mg/dL Medical Center (Lab): [address] [place] [address] FASTING LDL-calc 52 mg/dL Final [facility] man Medical Center (Lab): [address] [place] [address] FASTING Chol/hdl 2 ratio [facility] (Lab): [address] [place] [address] FASTING LDL/HDL [address] [facility] n Ratio Medical Center (Lab): [address] [place] [address] FASTING Lipid Final [facility] Header Medical Center (Lab): [address] [place] [address] 02/26/2019 CMP, NONFASTING Sodium 137 mmol/L 135-145 Fin al [facility] Serum or mmol/L [facility] Plasma Center (Lab): [address] [place] [address] NONFASTING Potassiu 4.6 mmol/L 3.5-5.1 Final itman m mmol/L Medical Center (Lab): [address] [place] [address] NONFASTING Chloride 99 mmol/L 98-107 Final itman mmol/L Medical Center (Lab): [address] [place] [address] NONFASTING Total 28 mmol/L 21-32 Final i tman CO2 mmol/L Medical Center (Lab): [address] [place] [address] NONFASTING Anion 14.6 mmol/L 7.0-16.0 Final itman [place] mmol/L Medical Center (Lab): [address] [place] [address] NONFASTING Glucose 98 mg/dL 65-99 Final Gr itman mg/dL Medical Center (Lab): [address] [place] [address] NONFASTING Calcium 9.30 mg/dL 8.90-10.3 Simran l [facility] 0 mg/dL Medical Center (Lab): [address] [facility] NONFASTING Urea 24 mg/dL 8-26 Final Grit man (BUN) mg/dL Medical Center (Lab): [address] [facility] NONFASTING Creatini 0.67 mg/dL 0.60-1.30 Fin al [place] ne mg/dL Medical Center (Lab): [address] [facility] NONFASTING High BUN/crea 35.8 ratio 12.0-20.0 Fin al [place] t Ratio ratio Medical Center (Lab): [address] [facility] NONFASTING Alt 33 U/L 14-54 U/L Final [facility] Center (Lab): [address] [facility] NONFASTING Ast 32 U/L 15-37 U/L Final [facility] Center (Lab): [address] [facility] NONFASTING Low Alp 21 U/L 38-126 Final [place] n U/L Medical Center (Lab): [address] [facility] NONFASTING Bilirubi 0.50 mg/dL 0.10-1.00 Fin ma Grit[place] n, Total mg/dL Medical Center (Lab): [address] [facility] NONFASTING Protein, 7.1 g/dL 6.4-8.2 Final [facility] Total g/dL Medical Center (Lab): [address] [facility] NONFASTING Albumin 4.1 g/dL 3.5-5.0 Final G ritman g/dL Medical Center (Lab): [address] [facility] NONFASTING Globulin 3.0 g/dL 1.4-4.8 Final [place] g/dL Medical Center (Lab): [address] [facility] NONFASTING A/g 1.4 ratio 1.1-1.9 Final Gr itman Ratio ratio Medical Center (Lab): [address] [facility] NONFASTING Egfr >60 Final [place] n mL/min/1.73 Medic al m2 Center (Lab): [address] [facility] NONFASTING Egfr Final [facility] n Header Medical Center (Lab): [address] [facility] 02/26/2019 Vitamin BLOOD Vitamin 609 pg/mL 180-914 Final [facility] B12, B12 pg/mL Medical Serum Center (Lab): [address] [facility] 02/26/2019 HbA1C BLOOD Hgb a1C 5.3 % 4.8-6.0 % Final G debbie (Hemoglob Medical in a1C), [place] Blood (Lab): [address] [facility] BLOOD HA1C the ada Final [facility] Heading recommends Medic al a therapy Center goal of (Lab): 70 0 less than S [facility], 7.0% HbA1C [place] 02/26/2019 Biopsy, No Incyt e Skin observati Diagnos tics on - [place], recorded. Anatomi c Pathology Lab: [id number], [place] 02/26/2019 Electroca No Gri tman rdiogram observati Medic al on Center: 60 6 recorded. E [facility] 02/26/2019 Biopsy, Spec Incyt e Tissue Diagnostic s - [place], Anatomic Pathology Lab: [id number], [place] [facility] - [place], Anatomic Pathology Lab: [id number], [place] [facility]x [facility] - [place], Anatomic Pathology Lab: [id number], [place] [facility] - [place], Anatomic Pathology Lab: [id number], [place] [facility]gr[facility] - [place], Anatomic Pathology Lab: [id number], [place] [employer] - [place], Anatomic Pathology Lab: [id number], [place] Apsig [facility] - [place], Anatomic Pathology Lab: [id number], [place] 02/12/2019 ESR BLOOD Sed Rate 12 mm/hour 0-30 Final [place] (Erythroc mm/hour Medica l yte Center Sedimenta (Lab): [address] [facility], Rate)[facility] Blood 02/12/2019 Arthritis Uric 3.4 mg/dL 2.5-7.1 Final [place] Panel Acid, mg/dL Medical Serum Center (Lab): [address] [facility] OBDULIO negative negative Final [facility]rit[facility] n Direct Medical Center (Lab): [address] [facility] RA Latex <10.0 IU/mL 0.0-13.9 Final [place] Turbid. IU/mL Medical Center (Lab): [address] [facility] C-reacti 1.0 mg/L 0.0-4.9 Final Grit man ve mg/L [facility] Protein, Center Quant (Lab): [address] [facility] Ccp 4 units 0-19 Final [place] Antibodie units Medical IgG/IgA Center (Lab): [address] [facility] 10/13/2018 Urinalysi URINE Color yellow Final Gri t[place] s Medical Complete, Center Reflex (Lab): 700 Culture [address] [facility] URINE Appearan clear Final [facility] (Lab): [address] [facility] URINE Specific 1.015 1.001-1.0 Final [facility] [place] [facility] (Lab): [address] [facility] URINE Ph 5.0 pH 5.0-7.5 Final [facility] units pH units Medical Center (Lab): [address] [facility] URINE Leukocyt negative negative Final Gri t[facility] es /uL /uL Medical Center (Lab): [address] [facility] URINE Nitrite negative negative Final [facility] (Lab): [address] [facility] URINE Protein negative negative Final Grit man mg/dL mg/dL Medical Center (Lab): [address] [facility] URINE Glucose normal normal Final [facility] mg/dL mg/dL Medical Center (Lab): [address] [facility] URINE Ketone negative negative Final Gritm an mg/dL mg/dL Medical Center (Lab): [address] [facility] URINE Urobilin normal normal Final [facility] ogen mg/dL mg/dL Medical Center (Lab): [address] [facility] URINE Bilirubi negative negative Final Gri t[facility] n mg/dL mg/dL Medical Center (Lab): [address] [facility] URINE ABNORMAL Blood 10 juliana/uL negative Final Gri t[facility] juliana/uL Medical Center (Lab): [address] [facility] URINE Urmicroh microscopi Final [facility] [place] [facility] (Lab): [address] [facility] URINE White 0-2 /high Final [place] Blood power field Medic al Cells Center (Lab): [address] [facility] URINE Red 3-5 /high Final [facility] Blood power field Medic al Cells Center (Lab): [address] [facility] URINE Sq 0-2 /high Final [facility] Epithelia power field Me dical l Center (Lab): [address] [facility] URINE Culture no no Final [place] Indicated [facility] (Lab): [address] [facility] URINE Transiti Final [place] onal Epi [facility] Center (Lab): [address] [facility] URINE Renal Final [facility] Tubular Medical [facility] Center (Lab): [address] [facility] URINE Mucus Final [place] [facility] (Lab): [address] [facility] URINE Calcium none seen Final Gritm an Ox /high Medical Crystal power Center field (Lab): [address] [facility] URINE Uric none seen Final [facility] Acid /high Medical Crystals power Center field (Lab): [address] [facility] URINE Triple none seen Final Grit[facility] n Phos /high Medical Crystals power Center field (Lab): [address] [facility] URINE Amorphou none seen Final [facility] man s [facility] Center (Lab): [address] [facility] URINE Bacteria none seen none seen Final G ritman /high power /high Medic al field power Center field (Lab): [address] [facility] URINE Hyaline none seen Final Gritm an Casts /low Medical power Center field (Lab): [address] [facility] URINE Granular Final [place] Cast [facility] (Lab): [address] [facility] URINE Red Cell none seen Final Grit man Cast /low Medical power Center field (Lab): [address] [facility] URINE White Final [place] Cell Cast [facility] (Lab): [address] [facility] URINE Waxy Final [facility] Cast [facility] (Lab): [address] [facility] [place] URINE Fatty Final [facility] Center (Lab): [address] [facility] [place] URINE Hemoglob Final [place] in [facility] (Lab): [address] [facility] [place] URINE Budding none seen Final it an Yeast /[facility] Medical power Center field (Lab): [address] [facility] [place] URINE Pseudohy Final [facility] phae Medical Yeast Center (Lab): [address] [facility] [place] URINE Trichomo absent Final [facility] laurie /[facility] Medical power [place] field (Lab): [address] [facility] [place] 08/05/2018 Carcinoem Cea 4.1 NG/mL 0.0-4.7 Final [facility] bryonic NG/mL Medical Ag, Center Quant, (Lab): 700 Serum or [facility] S t, Plasma [place] 08/05/2018 Cancer Ag Ca 19-9 12 U/mL 0-35 U/mL Simran l [facility] 19-9, [facility] Serum or Center Plasma (Lab): [address] [facility] 08/05/2018 Ca 125, Cancer 10.4 U/mL 0.0-38.1 Final [facility] Serum Antigen U/mL Medical (Ca) 125 Center (Lab): [address] [facility] 08/05/2018 Tissue T-transg 3 U/mL 0-5 U/mL Final [facility] Transglut lutaminas Medi edward aminase e (Ttg) Center Igg Ab, IgG (Lab): 70 0 Serum S [facility] 08/05/2018 Tissue T-transg <2 U/mL 0-3 U/mL Final [facility] ([facility]tg[facility] Iga Ab, IgA (Lab): 70 0 Serum S [facility] [place] 08/05/2018 Liver BLOOD Fibrosis 0.19 0.00-0.21 Final [facility] Fibrosis Score Medical Biomarker Center Panel, (Lab): [address] [facility] BLOOD Fibrosis comment Final [facility] n Stage Medical Center (Lab): [address] [facility] BLOOD Steatosi 0.19 0.00-0.30 Final [facility] man s Score Medical Center (Lab): [address] [facility] BLOOD Steatosi comment Final [facility] n [facility] Grade [facility] (Lab): [address] [facility] BLOOD Pastor 0.25 0.25 Final [place] Score [facility] (Lab): [address] [facility] BLOOD Pastor comment Final [place] Grade [facility] (Lab): [address] [facility] BLOOD Height: [address] [facility] Center (Lab): [address] [facility] BLOOD Weight: [address] [facility] Center (Lab): [address] [facility] BLOOD Alpha 253 mg/dL 110-276 Final Gritma n 2-Macrogl mg/dL [facility] obulins, Center Qn (Lab): [address] [facility] BLOOD Haptoglo 67 mg/dL 34-200 Final Gritm an bin mg/dL Medical Center (Lab): [address] [facility] BLOOD Apolipop 185 mg/dL 116-209 Final [place] rotein mg/dL Medical a-1 Center (Lab): [address] [facility] BLOOD Bilirubi 0.3 mg/dL 0.0-1.2 Final Gri tman n, Total mg/dL Medical Center (Lab): [address] [facility] BLOOD Ggt 11 IU/L 0-60 IU/L Final itky n Medical Center (Lab): [address] [facility] BLOOD ALT 25 IU/L 0-40 IU/L Final itky n (SGPT) [facility] P5 Center (Lab): [address] [facility] BLOOD AST 34 IU/L 0-40 IU/L Final [facility] [place] ([facility]) [facility] P5P Center (Lab): [address] [facility] BLOOD Choleste 117 mg/dL 100-199 Final [place] rol, mg/dL Medical Total Center (Lab): [address] [facility] BLOOD Glucose, 98 mg/dL 65-99 Final Gritm an Serum mg/dL Medical Center (Lab): [address] [facility] BLOOD Triglyce 85 mg/dL 0-149 Final Gritm an rides mg/dL Medical Center (Lab): [address] [facility] BLOOD Interpre comment Final Gritma n tations: Medical Center (Lab): [address] [facility] BLOOD Fibrosis comment Final [facility]rit[facility] n Scoring: Medical Center (Lab): [address] [facility] BLOOD Steatosi comment Final [facility] n s Grading [facility] Center (Lab): [address] [facility] BLOOD Pastor comment Final [facility] Scoring [facility] Center (Lab): [address] [facility] BLOOD Limitati comment Final Gritma n ons: Medical Center (Lab): [address] [facility] BLOOD Comment: comment Final [facility] n [facility] Center (Lab): [address] [facility] 08/03/2018 CBC W/ BLOOD Low Wbc. 4.7 5.0-11.0 Final Grit man Manual 1000/mm3 1000/mm3 Medica l Diff Center (Lab): [address] [facility] BLOOD Low Rbc 3.97 4.00-5.40 Final [facility] flaquita/mm3 flaquita/mm3 Medica l Center (Lab): [address] [facility] BLOOD Hgb 12.6 g/dL 12.0-15.0 Final Grit man g/dL Medical Center (Lab): [address] [facility] BLOOD Hct 37.7 % 35.0-49.0 Final [facility] % [facility] Center (Lab): [address] [facility] BLOOD Mcv 95 fL 80-100 fL Final [facility] Medical Center (Lab): [address] [facility] BLOOD Mch 32 pg 26-[address] [facility] Center (Lab): [address] [facility] BLOOD Mchc 33 gm/dL 32-36 Final [facility] gm/dL Medical Center (Lab): [address] [facility] BLOOD Rdw 13.4 % 11.6-14.8 Final [facility] % Medical Center (Lab): [address] [facility] BLOOD Plt 237 150-450 Final [facility] 1000/mm3 1000/mm3 Medica l Center (Lab): [address] [facility] BLOOD Mpv 9.8 fL 6.5-12.0 Final [facility] fL [facility] Center (Lab): [address] [facility] BLOOD Auto auto Final [facility] Diff differentia Medic al l Center (Lab): [address] [facility] BLOOD Neut % 66 % 46-66 % Final [facility] (Lab): [address] [facility] BLOOD Lymphs % 24 % 24-44 % Final [facility] (Lab): [facility] S [facility] BLOOD Ware % 7 % 0-11 % Final [facility] Center (Lab): [address] [facility] BLOOD Eos % 2 % 0-4 % Final [facility] (Lab): [facility] S [facility] BLOOD Baso % 1 % 0-2 % Final [facility] (Lab): [facility] S [facility] BLOOD Neutroph 3.1 1.8-7.8 Final Gritma n ils # 1000/mm3 1000/mm3 Medica l Center (Lab): [address] [place] [address] BLOOD Lymphs # 1.1 1.0-4.8 Final Gritma n 1000/mm3 1000/mm3 Medica l Center (Lab): [facility] S [facility] BLOOD Monos # 0.3 0.0-0.8 Final [facility] 1000/mm3 1000/mm3 Medica l Center (Lab): [facility] S [facility] BLOOD Eos # 0.1 0.0-0.5 Final [facility] 1000/mm3 1000/mm3 Medica l Center (Lab): [facility] S [facility] BLOOD Baso # 0.0 0.0-0.2 Final [facility] 1000/mm3 1000/mm3 Medica l Center (Lab): [address] [place] [address] 08/03/2018 Amylase, BLOOD High Amylase 188 U/L 28-100 [facility] or U/L Medical Plasma Center (Lab): [address] [place] [address] 08/03/2018 Iron BLOOD Iron 119 ug/dL 35-180 Final [facility] [place] Panel, ug/dL Medical Serum or Center Plasma (Lab): [address] [place] [address] BLOOD Transfer 247 mg/dL 192-282 Final [facility] rin mg/dL Medical Center (Lab): [address] [place] [address] BLOOD Tibc 346 ug/dL 230-450 Final Gritma n ug/dL Medical Center (Lab): [address] [place] [address] BLOOD Saturati 34.4 % 13.0-45.0 Final Grit man on % Medical Center (Lab): 700 [facility] 06/12/2018 Vitamin BLOOD Vitamin 599 pg/mL 180-914 Final [facility] B12, B12 pg/mL Medical Serum Center (Lab): [address] [facility] 06/12/2018 Intrinsic Intrinsi 1.0 AU/mL 0.0-1.1 Fin al [facility] Factor c Factor AU/mL Medical Blocking Abs, Center Ab, Serum Serum (Lab): [address] [facility] 04/28/2018 Fecal FECES ABNORMAL Ifob positive negative Final [facility] Occult [facility] Blood, Center Immunoass (Lab): 700 ay, Stool S [facility] 04/08/2018 Amylase, BLOOD High Amylase 110 U/L 28-100 Final G [facility] Serum or U/L [facility] Plasma Center (Lab): [address] [facility] 04/08/2018 Lipase, BLOOD Lipase 32 U/L 21-51 U/L Final [facility] Serum or Medical Plasma Center (Lab): [address] [place] [address] 03/04/2018 Amylase, BLOOD Amylase 92 U/L 28-100 Final [facility] Serum or U/L [facility] Plasma Center (Lab): [address] [place] [address] 03/04/2018 Lipase, BLOOD Lipase 30 U/L 21-51 U/L Final [facility] Serum or Medical Plasma Center (Lab): [address] [place] [address] 03/04/2018 Hepatitis Hep a negative negative Final [facility] Panel Ab, IgM Medical (A+B+C), Center Acute, (Lab): 700 Serum [facility] Hbsag negative negative Final [facility] Screen [facility] Center (Lab): [address] [place] [address] Hep B negative negative Final Grit[facility] n Core Ab, Medical IgM Center (Lab): [address] [place] [address] Hep C <0.1 s/co 0.0-0.9 Final Gritma n Virus Ab ratio s/co Medical ratio Center (Lab): [address] [place] [address] 02/23/2018 CBC W/ BLOOD Low Wbc. 4.2 5.0-11.0 Final Grit man Diff 1000/mm3 1000/mm3 Medica l Center (Lab): [address] [place] [address] BLOOD Low Rbc 3.97 4.00-5.40 Final Gritman flaquita/mm3 flaquita/mm3 [facility] Center (Lab): [address] [facility] BLOOD Hgb 12.6 g/dL 12.0-15.0 Final Grit man g/dL Medical Center (Lab): [address] [facility] [place] BLOOD Hct 38.7 % 35.0-49.0 Final [facility] % Medical Center (Lab): [address] [facility] BLOOD Mcv 98 fL 80-100 fL Final [facility] (Lab): [address] [facility] [place] BLOOD Mch 32 pg 26-32 pg Final [facility] (Lab): [address] [facility] [place] BLOOD Mchc 33 gm/dL 32-36 Final [facility] gm/dL Medical Center (Lab): [address] [facility] BLOOD Rdw 12.7 % 11.6-14.8 Final [facility] % Medical Center (Lab): [address] [facility] BLOOD Plt 239 150-450 Final itman 1000/mm3 1000/mm3 [facility] Center (Lab): [address] [facility] BLOOD Mpv 9.2 fL 6.5-12.0 Final [facility] fL Medical Center (Lab): [address] [facility] BLOOD Auto auto Final [place] Diff differentia Medic al Center (Lab): [address] [facility] [place] BLOOD Neut % 66 % 46-66 % Final [facility] (Lab): [address] [facility] [place] BLOOD Lymphs % 24 % 24-44 % Final [facility] n Medical Center (Lab): [address] [facility] [place] BLOOD Ware % 7 % 0-11 % Final [facility] (Lab): [address] [facility] BLOOD Eos % 2 % 0-4 % Final [facility] (Lab): [address] [facility] [place] BLOOD Baso % 1 % 0-2 % Final [facility] (Lab): [address] [facility] [place] BLOOD Neutroph 2.8 1.8-7.8 Final Gritma n ils # 1000/mm3 1000/mm3 [facility] Center (Lab): [address] [facility] BLOOD Lymphs # 1.0 1.0-4.8 Final Gritma n 1000/mm3 1000/mm3 Medica l Center (Lab): [address] [place] [address] BLOOD Monos # 0.3 0.0-0.8 Final [facility] 1000/mm3 1000/mm3 Medica l Center (Lab): [address] [place] [address] BLOOD Eos # 0.1 0.0-0.5 Final [facility] 1000/mm3 1000/mm3 Medica l Center (Lab): [address] [place] [address] BLOOD Baso # 0.0 0.0-0.2 Final [facility] 1000/mm3 1000/mm3 Medica l Center (Lab): [address] [place] [address] 02/23/2018 Amylase, BLOOD High Amylase 116 U/L 28-100 Final G [facility] Serum or U/L Medical Plasma Center (Lab): [address] [place] [address] 02/23/2018 Lipase, BLOOD Lipase 30 U/L 21-51 U/L Final [facility] Serum or Medical Plasma Center (Lab): [address] [place] [address] 02/23/2018 TSH, BLOOD Tsh 0.99 uIU/mL 0.45-5.33 Final [place] Serum or uIU/mL Medical Plasma Center (Lab): [address] [place] [address] 02/23/2018 CMP, NONFASTING Sodium 137 mmol/L 135-145 Fin al [place] Serum or mmol/L Medical Plasma Center (Lab): [address] [place] [address] NONFASTING Potassiu 3.9 mmol/L 3.5-5.1 Final itman m mmol/L Medical Center (Lab): [address] [place] [address] NONFASTING Chloride 101 mmol/L 98-107 Final [facility] mmol/L Medical Center (Lab): [address] [place] [address] NONFASTING Total 27 mmol/L 21-32 Final [place] CO2 mmol/L Medical Center (Lab): [address] [place] [address] NONFASTING Anion 12.9 mmol/L 7.0-16.0 Final [facility] Gap mmol/L Medical Center (Lab): [address] [place] [address] NONFASTING Glucose 96 mg/dL 65-99 Final Gr itman mg/dL Medical Center (Lab): [address] [place] [address] NONFASTING Calcium 9.4 mg/dL 8.9-10.3 Final [facility] mg/dL Medical Center (Lab): [address] [facility] NONFASTING Urea 21 mg/dL 8-26 Final Grit man (BUN) mg/dL Medical Center (Lab): [address] [facility] NONFASTING Low Creatini 0.58 mg/dL 0.60-1.30 [facility] (Lab[facility] [address] [facility] NONFASTING High BUN/crea 36.2 ratio 12.0-20.0 Fin ma G[facility] t Ratio ratio Medical Center (Lab): [address] [facility] NONFASTING Alt 33 U/L 14-54 U/L Final [facility] (Lab): [address] [facility] NONFASTING Ast 31 U/L 15-37 U/L Final [facility] Center (Lab): [address] [facility] NONFASTING Low Alp 37 U/L 38-126 Final Gritma n U/L Medical Center (Lab): [address] [facility] NONFASTING Bilirubi 0.50 mg/dL 0.10-1.00 Fin [facility] n, Total mg/dL Medical Center (Lab): [address] [facility] NONFASTING Protein, 7.4 gm/dL 6.4-8.2 Final [facility] Total gm/dL Medical Center (Lab): [address] [facility] NONFASTING Albumin 4.4 g/dL 3.5-5.0 Final G ritman g/dL Medical Center (Lab): [address] [facility] NONFASTING Globulin 3.0 gm/dL 1.4-4.8 Final [facility] gm/dL Medical Center (Lab): [address] [facility] NONFASTING A/g 1.5 ratio 1.1-1.9 Final Gr itman Ratio ratio Medical Center (Lab): [address] [facility] NONFASTING Egfr >60 Final Gritma n mL/min/1.73 Medic al m2 Center (Lab): [address] [facility] NONFASTING Egfr Final [facility] n Header Medical Center (Lab): [address] [place] [address] 02/23/2018 Vitamin BLOOD Vitamin 74.9 NG/mL Final [facility] D, D,25-Hydr Medical 25-Hydrox oxy Center y, Total, (Lab): [address] [facility] BLOOD Vitamin Final [facility] D, [facility] Center (Lab): [address] [facility] 02/23/2018 T4, Free, BLOOD Free T4 1.45 NG/dL 0.77-1.61 F inal [facility] Serum NG/dL Medical Center (Lab): [address] [facility] 02/23/2018 Lipid UNKNOWN Cholest 121 mg/dL <=200 Final [facility] Panel, mg/dL [facility] Blood Center (Lab): [address] [facility] UNKNOWN Trigly 54 mg/dL 30-[address] [facility] n mg/dL Medical Center (Lab): [address] [facility] UNKNOWN HDL-dire 51 mg/dL 29-[address] [facility] ct mg/dL Medical Center (Lab): [address] [facility] UNKNOWN LDL-calc 59 mg/dL Final [facility] Center (Lab): [address] [facility] UNKNOWN Chol/hdl 2 ratio Final [facility] Center (Lab): [address] [facility] UNKNOWN LDL/HDL [address] [facility] n Ratio Medical Center (Lab): [address] [facility] UNKNOWN Lipid Final [facility] Center (Lab): [address] [facility] 02/23/2018 HbA1C BLOOD Hgb a1C 5.5 % 4.8-6.0 % Final Alvin lewis (Hemoglob Medical in a1C), [place] Blood (Lab): [address] [facility] BLOOD HA1C the ada Final [place] Heading recommends Medic al a therapy Center goal of (Lab): 70 0 less than S [facility], 7.0% HbA1C [place] 02/23/2018 Homocyste Blood Homocyst 11.4 umol/L <15 Fi nal [place] ine, venous eine umol/L Medical Moles/vol Center ume, (Lab): [address] Serum [address] [facility] 02/23/2018 Folate, Blood Hematocr 38.7 % Final [facility] RBC venous it Medical Center (Lab): [address] [facility] Blood RBC 877 NG/mL [phone] Final Gritm an venous Folate NG/mL Medical Center (Lab): [address] [facility] 02/23/2018 Methylmal Blood Methylma 0.20 umol/L 0.00-0.40 Final [place] jan, venous lonic umol/L Medical QN, Serum Acid Center or Plasma Serum (Lab): 700 (Quant) S [facility] 02/23/2018 Hepatitis Blood ABNORMAL HAV Ab, reactive nr Simran l [place] (A+B+C) venous Total Medical Panel, Center Serum (Lab): [address] [facility] Blood HAV Ab, non nr Final [facility] venous IgM reactive Medical Center (Lab): 700 [facility] Blood Hbs Ag non nr Final [facility] venous Screen reactive Medical Center (Lab): [address] [facility] Blood Hbc Ab, non nr Final [facility] venous Total reactive Medical Center (Lab): [address] [place] [address] Blood Hepatiti see below nr Final Grit man venous s C Medical Antibody Center (Lab): [address] [facility] Blood Interpre see below Final [facility] man venous tation Medical Center (Lab): [address] [facility] 02/23/2018 Parathyro BLOOD Parathyr 13.3 pg/mL 12.0-88.0 Final [place] id Ab, oid pg/mL [facility] Serum Hormone Center (Lab): 700 [facility] 01/26/2018 CBC W/ BLOOD Wbc. 5.6 5.0-11.0 Final Grit man Diff 1000/mm3 1000/mm3 [facility] ([facility] [address] [facility] BLOOD Low Rbc 3.95 4.00-5.40 Final [facility] flaquita/mm3 flaqiuta/mm3 [facility] (Lab[facility] [address] [facility] BLOOD Hgb 12.4 g/dL 12.0-15.0 Final Grit man g/dL Medical Center (Lab): [address] [facility] BLOOD Hct 37.8 % 35.0-49.0 Final [facility] % Medical Center (Lab): [address] [facility] BLOOD Mcv 96 fL 80-100 fL Final [facility] Medical Center (Lab): [address] [facility] BLOOD Mch 31 pg 26-32 pg Final [facility] (Lab): [address] [facility] [place] BLOOD Mchc 33 gm/dL 32-36 Final [facility] gm/dL Medical Center (Lab): [address] [facility] [place] BLOOD Rdw 13.4 % 11.6-14.8 Final [facility] % Medical Center (Lab): [address] [facility] [place] BLOOD Plt 268 150-450 Final [facility] 1000/mm3 1000/mm3 Medica l Center (Lab): [address] [facility] [place] BLOOD Mpv 8.7 fL 6.5-12.0 Final [facility] fL Medical Center (Lab): 700 [facility] [facility] [place] BLOOD Auto auto Final [facility] Diff differentia Medic al Center (Lab): [address] [facility] [place] BLOOD Neut % 60 % 46-66 % Final [facility] (Lab): [address] [facility] [place] BLOOD Lymphs % 28 % 24-44 % Final [facility] n Medical Center (Lab): [address] [facility] [place] BLOOD Ware % 9 % 0-11 % Final [facility] (Lab): [address] [facility] [place] BLOOD Eos % 2 % 0-4 % Final [facility] (Lab): [address] [facility] [place] BLOOD Baso % 1 % 0-2 % Final [facility] (Lab): [address] [facility] [place] BLOOD Neutroph 3.4 1.8-7.8 Final [facility] n ils # 1000/mm3 1000/mm3 Medica l Center (Lab): [address] [facility] [place] BLOOD Lymphs # 1.6 1.0-4.8 Final [facility] n 1000/mm3 1000/mm3 Medica l Center (Lab): [address] [facility] [place] BLOOD Monos # 0.5 0.0-0.8 Final [place] 1000/mm3 1000/mm3 Medica l Center (Lab): [address] [facility] [place] BLOOD Eos # 0.1 0.0-0.5 Final [place] 1000/mm3 1000/mm3 Medica l Center (Lab): [address] [facility] [place] BLOOD Baso # 0.0 0.0-0.2 Final [place] 1000/mm3 1000/mm3 Medica l Center (Lab): [address] [facility] 01/26/2018 Lipase, BLOOD Lipase 36 U/L 21-51 U/L Final [place] [facility] Serum or Medical Plasma Center (Lab): [address] [facility] 01/26/2018 C-reactiv BLOOD C 0.5 mg/dL <=0.5 Final itman e Reactive mg/dL [facility] Protein, Prot Center Quantitat (Lab): [address] [facility] 01/26/2018 Iron, BLOOD Iron 49 ug/dL 35-180 Final [place] Serum ug/dL Medical Center (Lab): [address] [facility] 01/26/2018 C Diff FECES C negative negative Final [place] Toxin Difficile Medical A+B, Tox A/B Center Qualitati (Lab): 700 ve, Stool S [facility] 01/31/2017 Urinalysi URINE Color yellow Final [place] s [facility] Complete, Center Reflex (Lab): 700 Culture S [facility] URINE Appearan clear Final [place] ce [facility] Center (Lab): [address] [facility] URINE Specific 1.015 1.001-1.0 Final [place] [place] [facility] (Lab): [address] [facility] URINE Ph 6.0 pH 5.0-7.5 Final [place] units pH units Medical Center (Lab): [address] [facility] URINE Leukocyt negative negative Final [place] es /uL /uL Medical Center (Lab): [address] [facility] URINE Nitrite negative negative Final [place] Center (Lab): [address] [facility] URINE Protein negative negative Final [place] mg/dL mg/dL Medical Center (Lab): [address] [facility] URINE Glucose normal normal Final [place] mg/dL mg/dL Medical Center (Lab): [address] [facility] URINE Ketone negative negative Final [place] an mg/dL mg/dL Medical Center (Lab): [address] [facility] URINE Urobilin normal normal Final [place] ogen mg/dL mg/dL Medical Center (Lab): [address] [facility] URINE Bilirubi negative negative Final [place] n mg/dL mg/dL Medical Center (Lab): [address] [facility] URINE ABNORMAL Blood 10 juliana/uL negative Final [place] juliana/uL Medical Center (Lab): [address] [facility] URINE Urmicroh microscopi Final [facility] ead c Medical Center (Lab): [address] [facility] URINE White 0-2 /high Final [place] Blood power field Medic al Cells Center (Lab): [address] [facility] URINE Red 3-5 /high Final [place] Blood power field Medic al Cells Center (Lab): [address] [facility] URINE Sq 0-2 /high Final [place] Epithelia power field Me dical l Center (Lab): [address] [facility] URINE Culture no no Final [place] Indicated Medical Center (Lab): [address] [facility] URINE Transiti Final [place] onal Epi [facility] Center (Lab): [address] [facility] URINE Renal Final [place] Tubular Medical Epi Center (Lab): [address] [facility] URINE Mucus trace /high Final [facility] an power field Medic al Center (Lab): [address] [facility] URINE Calcium none seen Final [place] an Ox /high Medical Crystal power Center field (Lab): [address] [facility] URINE Uric none seen Final [place] Acid /high Medical Crystals power Center field (Lab): [address] [facility] URINE Triple none seen Final [place] n Phos /high Medical Crystals power Center field (Lab): [address] [facility] URINE Amorphou none seen Final [facility] s Medical Center (Lab): [address] [facility] URINE Bacteria none seen Final [place] man /high power Medic al field Center (Lab): [address] [facility] URINE Hyaline none seen Final [facility] an Casts /low Medical power Center field (Lab): [address] [facility] URINE Granular Final [place] Cast [facility] (Lab): [address] [facility] URINE Red Cell none seen Final [place] Cast /low Medical power Center field (Lab): [address] [facility] URINE White Final [place] Cell Cast [facility] Center (Lab): [address] [facility] URINE Waxy Final [facility] (Lab): [address] [facility] [place] URINE Fatty Final [facility] Center (Lab): [address] [facility] URINE Hemoglob Final [facility] in [facility] (Lab): [address] [facility] [place] URINE Budding none seen Final [facility] an Yeast /[facility] Medical power [place] field (Lab): [address] [facility] URINE Pseudohy Final [facility] phae Medical Yeast Center (Lab): [address] [facility] URINE Trichomo absent Final [facility] laurie /[facility] power [place] field (Lab): [address] [facility] [place] URINE Comment Final [facility] (Lab): [address] [facility] 11/07/2016 Streptoco RESPIRATOR Culture final: no F inal [facility] ccus Y [facility] A Medica l Group a, ons streptococc Johana ter Culture, us isolated (La b): 700 Isolate by culture. S Anuradha in [facility] Past Encounters 08/01/2022 Pain of Right Knee Joint Domitila Cherry Paulette, BOOM STICK WORKER: [address] [place] [phone], Ph. 04/24/2022 Pain in Coccyx Domitila Cherry Paulette, BOOM STICK WORKER: [address] [place] [phone], Ph. 03/26/2022 Hyperlipidemia; Hypertensive Disorder; H ypothyroidism Domitila Cherry Paulette, BOOM STICK WORKER: [address] [facility] [place] [phone], Ph. 03/25/2022 Hyperlipidemia; Hypothyroidism; Hyperten sive Disorder; Generalized Anxiety Disorder; Gastroesophageal Reflux Disease; Lesion of Skin of Face Domitila Cherry Paulette, BOOM STICK WORKER: [address] [facility] [place] [phone], Ph. 01/04/2022 Generalized Osteoarthritis of the Hand Pamela Magdaleno, DO[facility] [address] [facility] [place] [address], Ph. 11/07/2021 Acute Urinary Tract Infection Mansi Sutton CHART CHANGER: [address] [place] [phone], Ph. 11/07/2021 Mansi Sutton CHART CHANGER: [address] [place] [phone], Ph. 10/16/2021 Dysuria Mansi Sutton CHART CHANGER: [address] [place] [phone], Ph. 10/16/2021 Mansi Sutton CHART CHANGER: [address] [place] [phone], Ph. 09/11/2021 Acute Upper Respiratory Infection Mansi Sutton CHART CHANGER: [address] [place] [phone], Ph. 09/06/2021 Pamela Magdaleno, DO: [address] [place] [phone], Ph. 09/06/2021 Peripheral Vascular Disease; Pain in Toe ; Coronary Atherosclerosis; Administration of Influenza Vaccine Pamela Magdaleno, DO: [address] [place] [phone], Ph. 07/31/2021 Leukopenia Mansi SuttonSYDNIP: [address] [place] [address], Ph. 02/28/2021 Anxiety; Skin Lesion Mansi Sutton CHART CHANGER: [address] [place] [phone], Ph. 02/13/2021 Anxiety; Intermittent Palpitations Mansi Sutton CHART CHANGER: [address] [place] [address], Ph. Social History Tobacco Smoking Status Former Smoker (2 packs per week) Not es: stopped in 2002 Vaccine List Vaccine Type influenza, injectable, quadrivalent, pre servative free 08/05/2018 08/13/2019 07/20/20200.5 mL influenza, recombinant, quadrIvalent,inj ectable, preservative free 10.5 mL pneumococcal conjugate PCV 13 11/23/2014 pneumococcal polysaccharide PPV23 10/15/2017 Td(adult) unspecified formulation 07/04/2012 Tdap 09/22/20180.5 mL Notes: pt notes got Flu shot at Dr. Wilmar jennings office, COVID VACCINE COMPLETED Plan of Care Patient Instructions 30 total time spent today by this shakirai elmer for this patient, cmrj-vu-[id number] and non ecfn-hf-qhhh services combined. Reminders Provider Appointments None recorded. Lab None recorded. Referral None recorded. Procedures None recorded. Surgeries None recorded. Imaging None recorded. Vitals 08/01/2022 01:00PM OFFICE VISIT 60 Height Weight BMI Blood Pressure 5 ft 2.25 in 146.6 lbs 26.6 kg/m2 168/84 mm[Hg] 04/24/2022 02:00PM OFFICE VISIT 45 Height Weight BMI Blood Pressure 5 ft 2.25 in 132/70 mm[Hg] 03/25/2022 09:00AM OFFICE VISIT 45 Height Weight BMI Blood Pressure 5 ft 2.25 in 144.8 lbs 26.3 kg/m2 156/64 mm[Hg] 01/04/2022 03:45PM OFFICE VISIT 30 Height Weight BMI Blood Pressure 5 ft 2.25 in 143 lbs 25.9 kg/m2 130/84 mm[Hg] 11/07/2021 09:30AM OFFICE VISIT 30 Height Weight BMI Blood Pressure 5 ft 2.25 in 143.6 lbs 26.1 kg/m2 144/82 mm[Hg] 10/16/2021 02:30PM OFFICE VISIT 30 Height Weight BMI Blood Pressure 5 ft 2.25 in 143.2 lbs 26 kg/m2 140/90 mm[Hg] 09/11/2021 08:00AM TELEHEALTH CALL Height 5 ft 2.25 in 09/06/2021 08:15AM OFFICE VISIT 45 Height Weight BMI Blood Pressure 5 ft 2.25 in 141.8 lbs 25.7 kg/m2 150/90 mm[Hg] 02/28/2021 03:00PM OFFICE VISIT 45 Height Weight BMI Blood Pressure 5 ft 2.25 in 138.4 lbs 25.1 kg/m2 144/64 mm[Hg] 02/13/2021 11:00AM OFFICE VISIT 45 Height Weight BMI Blood Pressure 5 ft 2.25 in 139.6 lbs 25.3 kg/m2 140/72 mm[Hg] 12/25/2020 04:00PM OFFICE VISIT 30 Height Weight BMI Blood Pressure 5 ft 2.25 in 141.8 lbs 25.7 kg/m2 140/64 mm[Hg] 08/11/2020 02:30PM OFFICE VISIT 30 Height Blood Pressure 5 ft 2.25 in 142/70 mm[Hg] 05/02/2020 03:45PM OFFICE VISIT 45 Height Weight BMI Blood Pressure 5 ft 2.25 in 145 lbs 26.3 kg/m2 158/92 mm[Hg] 01/05/2020 08:30AM OFFICE VISIT 45 Height Weight BMI Blood Pressure 5 ft 2.25 in 146.8 lbs 26.6 kg/m2 130/82 mm[Hg] 07/16/2019 03:00PM OFFICE VISIT 45 Height Weight BMI Blood Pressure 5 ft 2.25 in 146 lbs 26.5 kg/m2 138/70 mm[Hg] 03/24/2019 11:30AM Follow Up 30 Height Weight BMI Blood Pressure 5 ft 2.25 in 144 lbs 26.1 kg/m2 124/70 mm[Hg] 03/08/2019 08:00AM OFFICE VISIT 30 Height Blood Pressure 5 ft 2.25 in 130/68 mm[Hg] 02/26/2019 08:30AM OFFICE VISIT 60 Height Weight BMI Blood Pressure 5 ft 2.25 in 144.2 lbs 26.2 kg/m2 104/84 mm[Hg] 02/12/2019 10:00AM OFFICE VISIT 30 Height Weight BMI Blood Pressure 5 ft 2.25 in 145 lbs 26.3 kg/m2 144/76 mm[Hg] 02/10/2019 10:30AM OFFICE VISIT 30 Height Weight BMI Blood Pressure 5 ft 2.25 in 145.2 lbs 26.3 kg/m2 154/80 mm[Hg] 02/08/2019 08:00AM OFFICE VISIT 45 Height Weight BMI Blood Pressure 5 ft 2.25 in 144.2 lbs 26.2 kg/m2 114/70 mm[Hg] 01/19/2019 10:45AM OFFICE VISIT 45 Height Weight BMI Blood Pressure 5 ft 2.25 in 145.8 lbs 26.5 kg/m2 128/70 mm[Hg] 10/13/2018 02:00PM OFFICE VISIT 30 Height Weight BMI Blood Pressure 5 ft 2.25 in 147.6 lbs 26.8 kg/m2 122/62 mm[Hg] 09/22/2018 03:00PM OFFICE VISIT 30 Height Weight BMI Blood Pressure 5 ft 2.25 in 145.4 lbs 26.4 kg/m2 120/68 mm[Hg] 08/24/2018 03:00PM OFFICE VISIT 30 Height Weight BMI Blood Pressure 5 ft 2.25 in 144.8 lbs 26.3 kg/m2 112/68 mm[Hg] 08/13/2018 02:00PM OFFICE VISIT 30 Height Weight BMI Blood Pressure 5 ft 2.25 in 144 lbs 26.1 kg/m2 136/68 mm[Hg] 08/05/2018 08:00AM OFFICE VISIT 30 Height Weight BMI Blood Pressure 5 ft 2.25 in 143 lbs 25.9 kg/m2 150/72 mm[Hg] 08/03/2018 08:30AM OFFICE VISIT 45 Height Weight BMI Blood Pressure 5 ft 2.25 in 144 lbs 26.1 kg/m2 134/72 mm[Hg] 03/04/2018 11:30AM OFFICE VISIT 45 Height Blood Pressure 5 ft 2.25 in 156/80 mm[Hg] 02/25/2018 10:00AM OFFICE VISIT 30 Height Weight BMI Blood Pressure 5 ft 2.25 in 143.6 lbs 26.1 kg/m2 128/62 mm[Hg] 02/23/2018 08:00AM OFFICE VISIT 60 Height Weight BMI Blood Pressure 5 ft 5 in 143.2 lbs 23.8 kg/m2 124/68 mm[Hg] 01/26/2018 03:30PM OFFICE VISIT 30 Height Weight BMI Blood Pressure 5 ft 5 in 143.4 lbs 23.9 kg/m2 136/70 mm[Hg] 01/05/2018 01:30PM OFFICE VISIT 45 Height Weight BMI Blood Pressure 5 ft 5 in 147 lbs 24.5 kg/m2 146/68 mm[Hg] 12/31/2017 02:00PM OFFICE VISIT 15 Height Weight BMI Blood Pressure 5 ft 5 in 143 lbs 23.8 kg/m2 130/60 mm[Hg] 12/29/2017 09:15AM OFFICE VISIT 30 Height Weight BMI Blood Pressure 5 ft 5 in 143.2 lbs 23.8 kg/m2 130/68 mm[Hg] 12/26/2017 11:45AM OFFICE VISIT 30 Height Weight BMI Blood Pressure 5 ft 5 in 146 lbs 24.3 kg/m2 120/70 mm[Hg] 12/19/2017 11:00AM PROCEDURE 60 min Height Weight BMI Blood Pressure 5 ft 5 in 145.2 lbs 24.2 kg/m2 120/68 mm[Hg] 11/19/2017 03:30PM OFFICE VISIT 30 Height Weight BMI Blood Pressure 5 ft 5 in 145 lbs 24.1 kg/m2 124/68 mm[Hg] 11/12/2017 01:00PM OFFICE VISIT 45 Height Weight BMI Blood Pressure 5 ft 5 in 146 lbs 24.3 kg/m2 146/88 mm[Hg] 04/11/2017 08:45AM OFFICE VISIT 15 Height Weight BMI Blood Pressure 5 ft 5 in 146 lbs 24.3 kg/m2 108/68 mm[Hg] 11/07/2016 09:00AM OFFICE VISIT 15 Height Weight BMI Blood Pressure 5 ft 5 in 146 lbs 24.3 kg/m2 134/72 mm[Hg] 07/17/2016 02:00PM OFFICE VISIT 30 Height Weight BMI Blood Pressure 5 ft 5 in 141 lbs 23.5 kg/m2 116/72 mm[Hg]
--- OUTSIDE RECORDS SUMMARY | 2022-08-12 12:40 | External Medical Summary ---
:1950 Author Care Team Providers Name Role Phone HEIDI LEES Primary Care Provider [phone] Allergies Code Code System Name Reaction Severity Status Onset DARVOCET-N Itching Moderate Active 5481 RxNorm Hydrocodone Hives Moderate Active 2834 RxNorm Oxycodone Hives Moderate Active Medications Name Status Start Date Stop Date acetic acid 2 % ear solution Completed alendronate 70 mg tablet Completed 021 Take 1 tablet every week by oral route in the morning for 84 da ys. aspirin 81 mg tablet,delayed release Active Not available Take 1 tablet every day by oral route in the morning. atorvastatin 40 mg tablet Active Not av ailable azithromycin 250 mg tablet Completed 09/20 benzonatate 100 mg capsule Completed 09/20 Calcium 500 + D (D3) Completed 04/22/2019 TAKE 1 TABLET PO DAILY cephalexin 500 mg capsule Completed 2018 diazepam 10 mg tablet Completed 04/22/2019 diclofenac 1 % topical gel Completed 04/22 Apply 2 g 4 times a day by topical route for 13 days. erythromycin 5 mg/gram (0.5 %) eye ointment Completed 09/20/2021 fenofibrate 160 mg tablet Active Not av ailable FeroSul 325 mg (65 mg iron) tablet Active Not available Take 1 tablet every day by oral route in the evening. fluconazole 150 mg tablet Completed 2018 gabapentin 300 mg capsule Active Not av ailable Take 1 capsule every day by oral route. hydrochlorothiazide 12.5 mg capsule Completed 09/20/2021 hydrochlorothiazide 12.5 mg tablet Active Not available Take 1 tablet every day by oral route. hydroxyzine HCl 25 mg tablet Completed Take by oral route for 30 days. ketoconazole 2 % topical cream Completed 0 04/22/2019 levothyroxine 88 mcg tablet Active Not available Take 1 tablet every day by oral route. metoprolol succinate ER 50 mg tablet,extended release 24 Active Not available hr metoprolol tartrate 50 mg tablet Completed 04/22/2019 mometasone 0.1 % topical cream Active N ot available Apply 1 application 5 times a day by topical route as needed. recyckru-fbcslbfsh-wdqaurodq 3.5 mg-10,000 unit/mL-1 % ear d rops,susp Completed 09/20/2021 Instill 1 drop as needed by otic route as directed for 7 days. nitrofurantoin monohydrate/macrocrystals 100 mg capsule Complete d 09/20/2021 TAKE 1 CAPSULE BY MOUTH EVERY 12 HOURS FOR 7 DAYS nitroglycerin 0.4 mg sublingual tablet Active Not available PLACE 1 TABLET (0.4 MG) BY SUBLINGUAL R OUTE AT 1ST SIGN OF ATTACK; MAY REPEAT EVERY 5 MINUTES UP TO 3 TABS; IF NO RELIEF SEEK MEDICAL HELP nystatin 100,000 unit/gram topical cream Completed 09/20/2021 Apply 1 application twice a day by topical route as needed for 30 days. nystatin 100,000 unit/mL oral suspension Completed 09/20/2021 omeprazole 40 mg capsule,delayed release Active Not available omeprazole ER 40 mg capsule,extended release Active Not available Take 1 capsule every day by oral route. oxybutynin chloride ER 5 mg tablet,extended release 24 hr Comple maykel 09/20/2021 TAKE 1 TABLET BY MOUTH ONCE DAILY FOR 30 DAYS paroxetine 10 mg tablet Active Not avai lable Take 1 tablet every day by oral route for 90 days. paroxetine 20 mg tablet Completed 09/20/20 phenazopyridine 200 mg tablet Completed TAKE 1 TABLET BY MOUTH THREE TIMES DAILY FOR 5 DAYS promethazine-DM 6.25 mg-15 mg/5 mL oral syrup Completed 09/20/2021 Stool Softener 100 mg tablet Active Not available Take 1 tablet every day by oral route. tramadol 50 mg tablet Completed 04/22/2019 Take 1 tablet every day by oral route as needed for 7 days. Vitamin B12 500 mcg tablet Active Not a vailable Take 1 tablet every day by oral route in the evening. Vitamin D3 Completed 09/19/2021 50 MCG DAILY IN THE EVENING Vitamin D3 50 mcg (2,000 unit) capsule Active Not available Take 1 capsule every day by oral route. Notes: Reviewed medications with manju bryan at [facility] telephone appointment with ANGEL LUIS Arias on 10/10/21. Patient did verify me dication list. RLM Problems Name Status Onset Date Source Idiopathic Peripheral Neuropathy Active 09/21/2021 Intermittent Claudication of Bilateral Lower Limbs Active 09/21/2021 Co-occurrent and Due to Atherosclerosis Procedures Date Name Performed by 11/03/2015 Other Information not avai lable Notes: TOE SURGERY: 2013, 2014, 201511/03/2007 Cholecystectomy Information not avai lable 11/03/1976 Wrist Surgery Information not avai lable Notes: RIGHT 11/03/1970 Section Information not avai lable Notes: 1976 Cataract Surgery Information not avai lable Notes: BILAT Colonoscopy Information not avai lable Back Surgery Information not avai lable Notes: 1999, 200004/22/2019 US, Duplex, Arterial, Lower Extremity, S [facility] Radiology Complete [address] [place] [address], [place] [id number] (Work Place) 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 Past Encounters 10/11/2021 Idiopathic Peripheral Neuropathy; Pain o f Toes of Bilateral Feet; Intermittent Claudication of Bilateral Lower Limbs Co-occurrent and Due to Atherosclerosis Juana Kelley, CHANGE DIRECTOR: [address] [place] [address], [place] [phone], Ph. 09/20/2021 Idiopathic Peripheral Neuropathy; Interm ittent Claudication of Bilateral Lower Limbs Co-occurrent and Due to Atherosclerosis Van Hansen MD: [address] [place] [address], [place] [phone], Ph. 03/22/2021 Tachycardia; Atrial Premature Complex; V entricular Premature Beats Larry Barrett MD: [address] [place] [address] , [place] [phone], Ph. Social History Tobacco Smoking Status Former Smoker (2 packs per week) Not es: QUIT 2001 Vaccine List Vaccine Type influenza, injectable, quadrivalent 08/05/2018 Tdap 09/22/2018 Plan of Care Reminders Provider Appointments None recorded. Lab None recorded. Referral None recorded. Procedures None recorded. Surgeries None recorded. Imaging None recorded. Vitals 09/20/2021 08:20AM IR- NEW PATIENT Height Weight BMI Blood Pressure 5 ft 2 in 139.4 lbs 25.5 kg/m2 151/97 mm[Hg] 04/22/2019 10:30AM New Patient 30 Height Weight BMI Blood Pressure 5 ft 2 in 144.6 lbs 26.4 kg/m2 (1) 133/62 mm[H g] (2) 141/60 mm[Hg ] 03/24/2019 Height Weight BMI Blood Pressure 5 ft 2.25 in 144 lbs 26.1 kg/m2 124/70 mm[Hg]
[2022-08-12] MEDS ORDERED: ceFAZolin 2 GM in DEXTROSE 5% IN WATER 50 ML IV SCH (13:15)
[2022-08-12 13:22] LABS: Basophils # (Auto) 0.03 K/mcL (0.00-0.30); Basophils % (Auto) 0.4 % (0.0-2.0); Eosinophils # (Auto) 0.14 K/mcL (0.00-0.70); Hematocrit 38.2 % (34.1-44.9); Lymphocytes # (Auto) 1.63 K/mcL (1.50-4.80); Lymphocytes % (Auto) 23.3 % (15.5-49.0); Mean Cell Volume 98.7 fL (80.0-100.0); Mean Corpuscular HGB Conc 31.4 g/dL (31.0-36.0); Mean Platelet Volume 9.9 fL (8.8-12.5); Monocytes # (Auto) 0.57 K/mcL (0.10-0.90); Monocytes % (Auto) 8.1 % (1.0-12.0); Neutrophils % (Auto) 65.9 % (38.0-78.0); Platelet Count 313 K/mcL (140-440); RBC 3.87 M/mcL (3.59-5.38); Red Cell Distribution Width 12.4 % (11.5-14.5)
[2022-08-12 13:44] LABS: Blood Urea Nitrogen 18 mg/dL (8-23); Calcium 9.5 mg/dL (8.6-10.4); Carbon Dioxide 24 mmol/L (22-30); Chloride 98 mmol/L (96-108); Glomerular Filtration Rate 89; Glucose 100 mg/dL (70-105)
[2022-08-12 15:28] LABS: Appearance,Urine HAZY (Clear); Bilirubin,Urine Negative (Negative); Color,Urine YELLOW; Culture Indicated,Urine No; Glucose,Urine (UA) Negative (Negative); Ketones,Urine Negative (Negative); Leukocyte Esterase,Urine Negative /uL (Negative); Nitrate,Urine Negative (Negative); Protein,Urine Negative (Negative); Specific Gravity,Urine 1.015 (1.000-1.035); Urine Blood Negative (Negative); Urobilinogen,Urine Negative
[2022-08-12] MEDS ORDERED: MAGNESIUM SULFATE 2 GM/50 ML BAG IV ONE (15:54)
[2022-08-12] MEDS ORDERED: PROPOFOL 200 MG/20 ML VIAL IV ONE (15:54)
[2022-08-12] MEDS ORDERED: LIDOCAINE HCL/PF 100 MG/5 ML SYRINGE IV ONE (15:54)
[2022-08-12] MEDS ORDERED: ONDANSETRON 4 MG/2 ML VIAL ONE (15:54)
[2022-08-12] MEDS ORDERED: NALBUPHINE 10 MG/ML AMPUL IV ONE (15:54)
[2022-08-12] MEDS ORDERED: ROPIVACAINE HCL/PF 20 ML VIAL IJ ONE (15:54)
[2022-08-12] MEDS ORDERED: KETAMINE 50 MG/ML Syringe (ANEST) IV ONE (15:54)
[2022-08-12] MEDS ORDERED: DEXAMETHASONE 10 MG/ML VIAL ONE (15:54)
[2022-08-12] MEDS ORDERED: ACETAMINOPHEN 1,000 MG/100 ML BAG IV ONE (16:19)
[2022-08-12] MEDS ORDERED: PROMETHAZINE 25 MG/ML VIAL IV PRN (16:19)
[2022-08-12] MEDS ORDERED: LACTATED RINGERS 250 ML IV PRN (16:19)
[2022-08-12] MEDS ORDERED: ONDANSETRON 4 MG/2 ML VIAL IV PRN (16:19)
[2022-08-12] MEDS ORDERED: IPRATROPIUM/ALBUTEROL 3 ML AMPUL.NEB NEB PRN (16:19)
[2022-08-12] MEDS ORDERED: NALOXONE HCL 0.4 MG/ML VIAL IV PRN (16:19)
[2022-08-12] MEDS ORDERED: diphenhydrAMINE 50 MG/ML VIAL IV PRN (16:19)
--- NOTE | 2022-08-12 16:28 | Brief Operative Note ---
Brief Operative Note Date of procedure: 08/12/22 Pre-op diagnosis: right femoral medial chondyle fx Post-op diagnosis: same Procedure: right medial femoral condyle fx orif Grafts/Implants: Yes Anesthesia: GETA Findings: abovwe Complications: none Surgeon: Gaurav Julian Badger Distiller Operator: Leroy Almanzar Estimated blood loss (cc): 6 Tourniquet Time (Minutes): 0 Specimens Removed/Pathology: none sent Condition: stable Disposition: PACU
[2022-08-12] MEDS ORDERED: HYDROmorphone 1 MG/ML SYRINGE IV PRN (16:29)
[2022-08-12] MEDS ORDERED: LACTATED RINGERS 1,000 ML IV SCH (16:30)
[2022-08-12] MEDS ORDERED: NITROGLYCERIN 0.4 MG TAB.SUBL SL PRN (16:41)
--- NOTE | 2022-08-12 16:41 | XRay Report ---
INDICATION: c-arm flouro for srgery TECHNIQUE: Intraoperative fluoroscopy and spot films. 0.3 minutes fluoroscopy and 0.421 mGy exposure utilized. IMPRESSION: Intraoperative fluoroscopy and spot films Interpreted and Authenticated by: Van Steen 08/12/22
[2022-08-12] MEDS: fentaNYL 100 MCG/2 ML VIAL IV PRN ×5 (16:51→17:14)
[2022-08-12] MEDS: MEPERIDINE 25 MG/ML VIAL IV PRN ×2 (17:07→17:13)
--- NOTE | 2022-08-12 17:08 | XRay Report ---
INDICATION: Post Op TECHNIQUE: AP and crosstable lateral right knee COMPARISON: Previous examination dated 08/06/2022 FINDINGS:Interval placement of 2 screws within the distal right femur. Femoral tibial joint spaces are within normal limits. IMPRESSION: Postoperative right knee Interpreted and Authenticated by: Van Steen 08/12/22
[2022-08-12] MEDS: 0.9 % SODIUM CHLORIDE 10 ML SYRINGE IV SCH (20:04)
[2022-08-13] MEDS: 0.9 % SODIUM CHLORIDE 10 ML SYRINGE IV SCH (05:10)
[2022-08-13] MEDS ORDERED: OMEPRAZOLE 20 MG CAPSULE PO SCH (07:30)
[2022-08-13] MEDS ORDERED: LEVOTHYROXINE 88 MCG TABLET PO SCH (07:30)
[2022-08-13] MEDS ORDERED: FERROUS SULFATE 325 MG TABLET PO SCH (08:00)
[2022-08-13] MEDS ORDERED: HYDROmorphone 2 MG TABLET PO PRN (08:24)
[2022-08-13] MEDS ORDERED: FENOFIBRATE 43 MG CAPSULE PO SCH (09:00)
[2022-08-13] MEDS ORDERED: ASPIRIN 81 MG TAB.CHEW PO SCH (09:00)
[2022-08-13] MEDS ORDERED: HYDROCHLOROTHIAZIDE 12.5 MG CAPSULE PO SCH (09:00)
[2022-08-13] MEDS ORDERED: ATORVASTATIN 40 MG TABLET PO SCH (09:00)
[2022-08-13] MEDS ORDERED: CYANOCOBALAMIN (VITAMIN B-12) 500 MCG TABLET PO SCH (09:00)
[2022-08-13] MEDS ORDERED: PARoxetine 20 MG TABLET PO SCH (09:00)
[2022-08-13] MEDS ORDERED: METOPROLOL SUCCINATE 50 MG TAB.XL.24H PO SCH (09:00)
[2022-08-13] MEDS ORDERED: CALCIUM W/VIT D3 500 MG TABLET PO SCH (09:00)
--- NOTE | 2022-08-13 09:56 | Operative Note ---
DATE OF OPERATION: 08/12/2022 DATE OF PROCEDURE: 08/12/2022 PREOPERATIVE DIAGNOSIS: Right medial femoral condyle fracture with intraarticular extension. POSTOPERATIVE DIAGNOSIS: Right medial femoral condyle fracture with intraarticular extension. PROCEDURE: Closed reduction and percutaneous pinning of the medial femoral condyle, medially. SURGEON: Gaurav Julian M.D. LAN/WAN ENGINEER: Leroy Almanzar PA-C. This provider's expertise and technical skill were required throughout the case. The PA assisted with preoperative coordination, intraoperative retraction, wound closure, and dressing and splint application, as well as postoperative documentation and care coordination. COMPLICATIONS: None. TOURNIQUET TIME: No tourniquet was used. ESTIMATED BLOOD LOSS: Minimal. DISPOSITION: PACU. IMPLANTS: Cannulated 8 mm screws with washers x2, one measuring 80 mm, one measuring 70 mm, excellent purchase achieved. DESCRIPTION OF PROCEDURE: The patient was brought to the operating room, put to sleep with general LMA anesthesia. Once asleep, the patient had the right leg sterilely prepped and draped in the usual sterile fashion. I then used image to confirm. After being sterilely prepped and draped and timeout performed, I placed two incisions on the medial femoral condyle. Using a guidewire, I placed two screws, one measured 80 mm, one measured 70 mm, cannulated, titanium 8 mm screws with washers. Both screws were placed under direct image, both lateral and AP views showing excellent reduction and position of both with good purchase on both. Images were saved at the end of the case. I irrigated the wounds thoroughly and then closed the wounds with 4-0 nylon interrupted sutures. The patient was placed in a knee immobilizer, short. The patient tolerated this well. There were no complications. RBH:leo Job ID: [id number] Doc ID: [id number] Gaurav Julian MD
--- NOTE | 2022-08-13 12:34 | EKG ---
[facility] Test Date: 2022-08-12 Pat Name: Mary Jane Russell Department: [facility] Room: Gender: Female Medical Services Coordinator: : 1950 Requested By: Gaurav Julian Order Number: [id number] Reading MD: Flex Marin Measurements Intervals [place] Rate: 60 P: 45 UT: 175 QRS: 1 QRSD: 89 T: -13 QT: 410 QTc: 410 Interpretive Statements Sinus rhythm Consider left ventricular hypertrophy Inferior infarct, age indeterminate Electronically Signed On 08-13-2022 12:34:24 PDT by Flex Marin [id number]
== END 2022-08-13 16:15 | disposition home or self-care (01) | DRG 482 ==
LOC: MEDSUR 12:38
PROVIDERS: ADMIT Orthopaedic Surgery; ATTEND Orthopaedic Surgery